=== PATIENT | female | born 1950 | race Caucasian/White ===

== ENCOUNTER 2021-04-24 20:48 | Inpatient (IN) | payer MEDICARE ==
[~2021-04-24] VITALS: Ht 167.6 cm; Wt 101.6 kg
--- NOTE | 2021-04-24 22:50 | NUR ---
PT WAS BIBSELF C/O BLE PAIN WHICH STARTED YESTERDAY. PT WAS DISCHARGED FROM [facility] 2 DAYS AGO. PT IS AAO X4, BREATHING EVEN AND UNLABORED, SATURATION AT 98% ON ROOM AIR, HR IS 86. PATIENT WAS SEEN AND EXAMINED BY DR DELGADO. PT ATTACHED TO MONITOR AND PULSE OX. WILL CONTINUET TO MONITOR AND CARRY OUT MD ORDERS.
[2021-04-24] MEDS ORDERED: IBUPROFEN 400 MG TABLET ONE (23:16)
[2021-04-24] MEDS ORDERED: IBUPROFEN 400 MG TABLET PO ONE (23:30)
--- NOTE | 2021-04-24 23:40 | NUR ---
DR MARSHALL AT BEDSIDE.
[2021-04-25] MEDS ORDERED: LABETALOL 20 MG/4 ML VIAL IV PRN
[2021-04-25] MEDS ORDERED: ACETAMINOPHEN 325 MG TABLET PO PRN
[2021-04-25] MEDS ORDERED: MAG HYDROX/AL HYDROX/SIMETH 30 ML UDC PO PRN
[2021-04-25] MEDS ORDERED: MAGNESIUM HYDROXIDE 30 ML UDC PO PRN
[2021-04-25] MEDS ORDERED: ONDANSETRON HCL/PF 4 MG/2 ML VIAL IVP PRN
[2021-04-25] MEDS ORDERED: hydrALAZINE HCL IV 20 MG VIAL IV PRN
[2021-04-25] MEDS ORDERED: MORPHINE SULFATE INJ 2 MG/ML DISP.SYRIN IV PRN
[2021-04-25] MEDS ORDERED: Z GUARD REMEDY 2 OZ OINT TP PRN
[2021-04-25 00:09] LABS: BASOPHILS # (AUTO) 0.1 K/uL (0.0-0.2); BASOPHILS % (AUTO) 0.4 % (0.0-2.0); CALCIUM, SERUM 8.9 mg/dL (8.5-10.1); CARBON DIOXIDE 31 mmol/L (21-32); CHLORIDE 99 mmol/L (98-107); CREATININE 1.3 mg/dL (0.6-1.3); EOSINOPHILS % (AUTO) 1.7 % (0.0-6.0); GLUCOSE 119 mg/dL (74-106); HEMATOCRIT 44 % (33-45); HEMOGLOBIN 14.7 g/dL (11.5-14.8); LYMPHOCYTES # (AUTO) 0.8 K/uL (0.8-4.8); LYMPHOCYTES % (AUTO) 6.9 % (20.0-44.0); MEAN CORPUSCULAR HGB CONC 33 g/dl (31.0-36.0); MEAN CORPUSCULAR VOLUME 93 fL (82-100); MONOCYTES # (AUTO) 1.4 K/uL (0.1-1.30); MONOCYTES % (AUTO) 12.1 % (2.0-12.0); NEUTROPHILS % (AUTO) 78.9 % (43.0-81.0); PLATELET COUNT (AUTO) 261 K/uL (150-450); RED BLOOD CELL COUNT(AUTO) 4.73 MIL/uL (4.0-5.2); SODIUM SERUM 138 mmol/L (136-145); UREA NITROGEN, BLOOD 35 mg/dL (7-18); WHITE BLOOD COUNT (AUTO) 11.4 K/uL (4.3-11.0)
--- NOTE | 2021-04-25 00:24 | NUR ---
MRSA SWAB AND COVID ANTIGEN COLLECTED AND SENT TO LAB
--- NOTE | 2021-04-25 00:24 | NUR ---
LACTIC ACID 2.4
--- NOTE | 2021-04-25 00:30 | NUR ---
IV LINE ESTABLISHED AT RAC 20G.
[2021-04-25] MEDS: APIXABAN 5 MG TABLET PO SCH ×3 (02:00→17:06)
--- NOTE | 2021-04-25 02:04 | NUR ---
FOLLLOWED UP WITH LAB. COVID SWAB JUST GOT PICKED UP FROM [facility]
[2021-04-25] MEDS ORDERED: SULFAMETH/TRIMETH 800/160 MG 1 UDTAB TABLET ONE (02:09)
[2021-04-25] MEDS ORDERED: CEPHALEXIN MONOHYDRATE 500 MG CAPSULE PO ONE (02:09)
[2021-04-25] MEDS ORDERED: APIXABAN 5 MG TABLET ONE (02:09)
[2021-04-25] MEDS: IV NS 0.9% 1,000 ML IV PRN ×2 (02:19→18:34)
[2021-04-25 03:10] LABS: BILIRUBIN,DIRECT 0.1 mg/dL (0.0-0.2)
--- NOTE | 2021-04-25 03:50 | NUR ---
REPORT GIVEN TO ASHTYN QUICK FOR JONI. PT TRANSFERRED TO ROOM 306 VIA ACLS PROTOCOL.
[2021-04-25 03:55] VITALS: BP 120/65
--- NOTE | 2021-04-25 03:55 | NUR ---
CONTRACT RECRUITER ADMITTING/OPENING NOTES PATIENT WAS BROUGHT UP TO THE UNIT VIA GURNEY AT APPROXIMATELY THIS TIME ACCOMPANIED WITH NURSE ANTONIO AND DARWIN KAPOOR. PATIENT WAS UNABLE TO AMBULATE TO THE BED. PATIENT WAS ORIENTED TO THE STAFF AND ROOM. PATIENT'S ALERT AND ORIENTED X4. PATIENT'S STABLE ON ROOM AIR. PATIENT'S CONNECTED TO A TELE MONITOR SHOWING NO CARDIAC DISTRESS AT THIS TIME. IV ACCESS NOTED IN RAC GAUGE#20, WHICH IS INTACT, PATENT, AND FLUSHING WELL. PATIENT'S IN NO ACUTE DISTRESS AT THIS TIME. SAFETY MEASURES IN PLACE: BED LOCKED, BED ALARM ON, SIDE RAILS UPX3, AND CALL LIGHT WITHIN REACH OF THE PATIENT.
[2021-04-25 06:13] LABS: BASOPHILS # (AUTO) 0.1 K/uL (0.0-0.2); BASOPHILS % (AUTO) 0.5 % (0.0-2.0); EOSINOPHILS % (AUTO) 2.3 % (0.0-6.0); HEMATOCRIT 42 % (33-45); HEMOGLOBIN 14.2 g/dL (11.5-14.8); LYMPHOCYTES # (AUTO) 0.9 K/uL (0.8-4.8); LYMPHOCYTES % (AUTO) 9.4 % (20.0-44.0); MEAN CORPUSCULAR HGB CONC 34 g/dl (31.0-36.0); MEAN CORPUSCULAR VOLUME 93 fL (82-100); MONOCYTES # (AUTO) 1.3 K/uL (0.1-1.30); MONOCYTES % (AUTO) 13.4 % (2.0-12.0); NEUTROPHILS # (AUTO) 7.4 K/uL (1.8-8.9); NEUTROPHILS % (AUTO) 74.4 % (43.0-81.0); PLATELET COUNT (AUTO) 250 K/uL (150-450); RED BLOOD CELL COUNT(AUTO) 4.53 MIL/uL (4.0-5.2)
[2021-04-25 06:20] LABS: BILIRUBIN,TOTAL 0.3 mg/dL (0.2-1.0); CALCIUM, SERUM 9.1 mg/dL (8.5-10.1); CREATININE 1.3 mg/dL (0.6-1.3); MAGNESIUM 2.4 mg/dL (1.8-2.4); PHOSPHORUS 4.3 mg/dL (2.5-4.9); TOTAL PROTEIN, SERUM 7.3 g/dL (6.4-8.2)
[2021-04-25 06:31] LABS: ALBUMIN 2.7 g/dL (3.4-5.0)
--- NOTE | 2021-04-25 07:30 | NUR ---
HEAD INSULATION BOARD SAW OPERATOR CLOSING NOTES PATIENT WAS SEEN SLEEPING IN BE. PATIENT'S ALERT/ORIENTED X 4. PATIENT'S STABLE ON ROOM AIR. PATIENT'S CONNECTED TO A TELE MONITOR SHOWING NO CARDIAC DISTRESS AT THIS TIME. IV ACCESS NOTED IN RAC GAUGE#20, WHICH IS INTACT, PATENT, AND FLUSHING WELL. PATIENT'S IN NO ACUTE DISTRESS AT THIS TIME. PATIENT REFUSED TO HAVE HER OWN MEDICATIONS KEPT SAFE IN THE PHARMACY, ALTHOUGH PATIENT WAS MADE AWARE THAT SHE WILL GET HER OWN MEDICATIONS BACK WHEN SHE GETS DISCHARGED. PATIENT'S OWN MEDICATIONS ARE IN A ZIPLOC BAG IN HER ROOM. PER PATIENT, SHE WILL NOT TAKE HER OWN MEDS DURING THIS HOSPITALIZATION AND AGREED TO ONLY TAKE THE MEDICATIONS ADMINISTERED FROM THIS HOSPITAL. SAFETY MEASURES IN PLACE: BED LOCKED, BED ALARM ON, SIDE RAILS UPX3, AND CALL LIGHT WITHIN REACH OF THE PATIENT. ENDORSED CARE TO THE DAY SHIFT NURSE.
--- NOTE | 2021-04-25 07:46 | NUR ---
NUTRITION SERVICES ASSISTANT OPENING NOTES RECEIVED PATIENT IN BED ALERT/ORIENTED X 4, ABLE TO MAKE NEEDS KNOWN. PATIENT'S STABLE ON ROOM AIR. PATIENT'S CONNECTED TO A TELE MONITOR SHOWING NO CARDIAC DISTRESS AT THIS TIME. IV ACCESS NOTED IN RAC GAUGE#20, WHICH IS INTACT, PATENT, AND FLUSHING WELL. PATIENT'S IN NO ACUTE DISTRESS AT THIS TIME. FOR PT/OT EVALUATION. SAFETY MEASURES IN PLACE: BED LOCKED, BED ALARM ON, SIDE RAILS UPX3, AND CALL LIGHT WITHIN REACH OF THE PATIENT. WE WILL CONTINUE TO MONITOR.
[2021-04-25 08:00] VITALS: BP 115/66
[2021-04-25] MEDS: SULFAMETH/TRIMETH 800/160 MG 1 UDTAB TABLET PO SCH ×3 (09:00→17:04)
[2021-04-25] MEDS: ASPIRIN EC 81 MG TABLET.DR PO SCH (09:01)
[2021-04-25] MEDS: CEPHALEXIN MONOHYDRATE 250 MG CAPSULE PO SCH ×4 (09:01→17:04)
[2021-04-25 12:00] VITALS: BP 122/67
[2021-04-25 16:00] VITALS: BP 117/63
--- NOTE | 2021-04-25 19:26 | NUR ---
PATIENT FINANCIAL REPRESENTATIVE CLOSING NOTES PATIENT'S ALERT/ORIENTED X 4. PATIENT'S STABLE ON ROOM AIR. PATIENT'S CONNECTED TO A TELE MONITOR WITH SR 77 HEART RATE , NO CARDIAC DISTRESS AT THIS TIME. IV ACCESS NOTED IN RAC GAUGE#20, WHICH IS INTACT, PATENT, AND FLUSHING WELL. AMBULATE WITH ASSIST TO THE BATHROOM. SAFETY MEASURES IN PLACE: BED LOCKED, BED ALARM ON, SIDE RAILS UPX3, AND CALL LIGHT WITHIN REACH OF THE PATIENT. ENDORSED CARE TO THE INCOMING SHIFT.
--- NOTE | 2021-04-25 19:50 | NUR ---
DIRECTOR TELEVISION OPENING NOTES RECEIVED PATIENT AWAKE LAYING IN BED. A/O X4. PATIENT WITH REGULAR AND UNLABORED BREATHING ON ROOM AIR, TOLERATED WELL. NO SIGNS AND SYMPTOMS OF DISTRESS NOTED. NO COMPLAIN OF PAIN OR DISCOMFORT AT THIS TIME. PATIENT IS ON EXTERNAL RUBBER CHEMIST SR @ HR 77. IV ACCESS RAC G #20 RUNNING NS @ 75 ML/HR. IV ACCESS PATENT AND INTACT. SAFETY PRECAUTIONS ENFORCED WITH BED LOCKED AND AT LOWEST POSITION. SIDERAILS UP X2. CALL LIGHT WITHIN REACH AT ALL TIMES. WILL CONTINUE TO MONITOR PATIENT.
[2021-04-25 20:00] VITALS: BP 134/66
--- NOTE | 2021-04-25 23:14 | NUR ---
QA MANAGER NOTES PATIENT COMPLAINED OF PAIN. ADMINISTERED TYELNOL 650 MG PO PRN ORDERED BY HOSPITALIST
[2021-04-26 00:09] VITALS: BP 122/62
[2021-04-26 00:19] LABS: BILIRUBIN,URINE NEGATIVE (NEGATIVE); COLOR,URINE YELLOW (YELLOW); LEUKOCYTE ESTERASE ,URINE NEGATIVE (NEGATIVE); NITRITE, URINE NEGATIVE (NEGATIVE); PROTEIN,URINE NEGATIVE (NEGATIVE); UGLUCOSE NEGATIVE (NEGATIVE); UROBILINOGEN,URINE 0.2 EU/dL (0.2)
[2021-04-26 00:58] LABS: CREATININE, URINE 61.3 MG/DL (30.0-125.0); URINE TOTAL PROTEIN 16.6 mg/dL (0-11.9)
[2021-04-26 01:26] LABS: EOSINOPHIL,URINE None Seen
[2021-04-26] MEDS: diphenhydrAMINE HCL 50 MG/ML VIAL IV PRN ×2 (04:43→13:16)
--- NOTE | 2021-04-26 04:43 | NUR ---
PROFESSIONAL GOLF TOURNAMENT PLAYER NOTES DELAYED SCANNED BENDARYL WAS GIVEN AT 0230 FOR ITCHING
[2021-04-26 05:00] VITALS: BP 121/69
--- NOTE | 2021-04-26 07:07 | NUR ---
MINE INSPECTOR FEDERAL NOTES PT REFUSING LINEN CHANGE X3 MULTIPLE TIMES THROUGHOUT SHIFT.RISK AND BENEFITS EXPLAINED X3 WILL ENDORSE CARE
--- NOTE | 2021-04-26 07:09 | NUR ---
SURVEILLANCE DUAL RATE OFFICER CLOSING NOTES PATIENT STILL AWAKE LAYING IN BED. A/O X4. PATIENT WITH REGULAR AND UNLABORED BREATHING ON ROOM AIR, TOLERATED WELL. NO SIGNS AND SYMPTOMS OF DISTRESS NOTED. NO COMPLAIN OF PAIN OR DISCOMFORT AT THIS TIME. PATIENT IS ON EXTERNAL WEB CONTENT MANAGER SR @ HR 66. IV ACCESS RAC G #20 RUNNING NS @ 75 ML/HR. IV ACCESS PATENT AND INTACT. SAFETY PRECAUTIONS ENFORCED WITH BED LOCKED AND AT LOWEST POSITION. SIDERAILS UP X2. CALL LIGHT WITHIN REACH AT ALL TIMES. WILL ENDORSE CONTINUITY OF CARE TO DAY SHIFT NURSE.
--- NOTE | 2021-04-26 07:52 | NUR ---
SOLUTIONS EXECUTIVE SECURITY OPENING NOTES RECEIVED PATIENT AWAKE IN BED, A/O X4. ON ROOM AIR. NO SIGNS AND SYMPTOMS OF DISTRESS NOTED. NO COMPLAIN OF PAIN OR DISCOMFORT AT THIS TIME. PATIENT IS ON EXTERNAL CREATIVE SERVICES WRITER. IV ACCESS RAC G #20 RUNNING NS @ 75 ML/HR. SAFETY PRECAUTIONS IN PLACED WITH BED LOCKED AND AT LOWEST POSITION. SIDERAILS UP X2. CALL LIGHT WITHIN REACH AT ALL TIMES. WILL CONTINUE TO MONITOR.
[2021-04-26 08:11] VITALS: BP 136/77
[2021-04-26] MEDS: CEPHALEXIN MONOHYDRATE 250 MG CAPSULE PO SCH ×3 (08:31→17:24)
[2021-04-26] MEDS: SULFAMETH/TRIMETH 800/160 MG 1 UDTAB TABLET PO SCH ×2 (08:31→17:24)
[2021-04-26] MEDS: ASPIRIN EC 81 MG TABLET.DR PO SCH (08:32)
[2021-04-26] MEDS: APIXABAN 5 MG TABLET PO SCH ×2 (08:33→17:25)
[2021-04-26] MEDS ORDERED: ASPI-1420 PO (09:34)
[2021-04-26] MEDS ORDERED: SULF1TAB48 PO (09:34)
[2021-04-26] MEDS ORDERED: CHOL100062 PO (09:34)
[2021-04-26] MEDS ORDERED: MAGN200T9 PO (09:34)
[2021-04-26 11:49] VITALS: BP 112/62
[2021-04-26 16:00] VITALS: BP 118/76
--- NOTE | 2021-04-26 18:49 | NUR ---
SALES OUTFITTER CLOSING NOTES PATIENT AWAKE LAYING IN BED. A/O X4. PATIENT WITH REGULAR AND UNLABORED BREATHING ON ROOM AIR. NO SIGNS AND SYMPTOMS OF DISTRESS NOTED. NO COMPLAIN OF PAIN OR DISCOMFORT AT THIS TIME. BENADRYL 25MG GIVEN FOR THE GENERALIZED RASHES. PATIENT IS ON EXTERNAL GROUP TEACHER . IV ACCESS ABDIAS G #18 IV ACCESS PATENT AND INTACT. SAFETY PRECAUTIONS ENFORCED WITH BED LOCKED AND AT LOWEST POSITION. SIDERAILS UP X2. CALL LIGHT WITHIN REACH AT ALL TIMES. WILL ENDORSE CONTINUITY OF CARE TO INCOMING SHIFT.
--- NOTE | 2021-04-26 19:15 | NUR ---
SPORTS PHYSIOTHERAPIST OPENING NOTES RECEIVED PATIENT AWAKE LAYING IN BED. A/O X4. PATIENT WITH REGULAR AND UNLABORED BREATHING ON ROOM AIR, TOLERATED WELL. NO SIGNS AND SYMPTOMS OF DISTRESS NOTED. NO COMPLAIN OF PAIN OR DISCOMFORT AT THIS TIME. PATIENT IS ON EXTERNAL FORM BLOCK MAKER SR @ HR 66. IV ACCESS RAC G #20 RUNNING NS @ 75 ML/HR. IV ACCESS PATENT AND INTACT. SAFETY PRECAUTIONS ENFORCED WITH BED LOCKED AND AT LOWEST POSITION. SIDERAILS UP X2. CALL LIGHT WITHIN REACH AT ALL TIMES. WILL CONTINUE TO MONITOR PATIENT.
[2021-04-26 20:00] VITALS: BP 141/77
[2021-04-27] VITALS: BP 125/56
[2021-04-27] MEDS: diphenhydrAMINE HCL 50 MG/ML VIAL IV PRN (02:29)
--- NOTE | 2021-04-27 02:30 | NUR ---
ARSON INVESTIGATOR NOTES PATIENT COMPLAIN OF ITCHING. ADMINISTERED BENDARYL 25MG/O.5ML IV PUSH ORDERED BY HOSPITALIST.
[2021-04-27 04:00] VITALS: BP 120/79
--- NOTE | 2021-04-27 06:46 | NUR ---
COUNTY PROGRAM TECHNICIAN CLOSING NOTES PATIENT STILL AWAKE LAYING IN BED. A/O X4. PATIENT WITH REGULAR AND UNLABORED BREATHING ON ROOM AIR, TOLERATED WELL. NO SIGNS AND SYMPTOMS OF DISTRESS NOTED. NO COMPLAIN OF PAIN OR DISCOMFORT AT THIS TIME. PATIENT IS ON EXTERNAL PAPER FOLDER SR @ HR 67. IV ACCESS RAC G #20 RUNNING NS @ 75 ML/HR. IV ACCESS PATENT AND INTACT. SAFETY PRECAUTIONS ENFORCED WITH BED LOCKED AND AT LOWEST POSITION. SIDERAILS UP X2. CALL LIGHT WITHIN REACH AT ALL TIMES. WILL ENDORSE CONTINUITY OF CARE TO DAY SHIFT NURSE.
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
--- NOTE | 2021-04-27 07:46 | NUR ---
RN OPENING NOTE- RECEIVED PATIENT AWAKE LAYING IN BED. A/O X4. PATIENT WITH REGULAR AND NON-LABORED BREATHING / ON ROOM AIR. NO SIGNS AND SYMPTOMS OF DISTRESS NOTED. NO COMPLAINT OF PAIN OR DISCOMFORT AT THIS TIME. PATIENT IS ON EXTERNAL CHAINSAW MECHANIC SR @ HR 68. IV ACCESS RAC G #20 SKIN RASH TO ENTIRE BODY . PRURITIS PRESENT. POSSIBLE ALLERGIC REACTION TO RX. NOTIFIED MD. SAFETY PRECAUTIONS ENFORCED WITH BED LOCKED AND AT LOWEST POSITION. SIDERAILS UP X2. CALL LIGHT WITHIN REACH AT ALL TIMES. WILL CONTINUE TO MONITOR PATIENT.
[2021-04-27 08:36] VITALS: BP 155/96
[2021-04-27] MEDS: SULFAMETH/TRIMETH 800/160 MG 1 UDTAB TABLET PO SCH (09:00)
[2021-04-27] MEDS: CEPHALEXIN MONOHYDRATE 250 MG CAPSULE PO SCH (09:00)
[2021-04-27] MEDS: APIXABAN 5 MG TABLET PO SCH (09:17)
[2021-04-27] MEDS: ASPIRIN EC 81 MG TABLET.DR PO SCH (09:17)
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
--- NOTE | 2021-04-27 13:00 | NUR ---
POSTAL SORTING OFFICER NOTE- PT DC HOME AT THIS TIME. PT AFTERCARE AND INSTRUCTIONS GIVEN. REVIEWED PRESCRIPTIONS W PT AND UNDERSTOOD. VS STABLE,. BELONGINGS RETURNED TO PT. REFUSES SKIN PHOTOGRAPHS AND CARE. ID WRISTBAND REMOVED. ESCORTED TO CAR IN [place] BY THIS RN.
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
== END 2021-04-27 13:15 | disposition home or self-care (01) | DRG 947 ==
LOC: ER 20:53 → MED 04-25 00:39 → TELE 04-25 03:57 → MED 04-27 11:22
PROVIDERS: ADMIT Internal Medicine; ATTEND Nurse Practitioner Acute Care
DX: R53.1 Weakness (principal); N17.0 Acute kidney failure with tubular necrosis; L03.119 Cellulitis of unspecified part of limb; I48.91 Unspecified atrial fibrillation; I10 Essential (primary) hypertension; B36.9 Superficial mycosis, unspecified; B35.6 Tinea cruris; Z20.822 Contact with and (suspected) exposure to COVID-19; Z85.42 Personal history of malignant neoplasm of other parts of uterus; Z91.19 Patient's noncompliance with other medical treatment and regimen; Z90.710 Acquired absence of both cervix and uterus; Z98.890 Other specified postprocedural states; Z68.36 Body mass index [BMI] 36.0-36.9, adult; I89.0 Lymphedema, not elsewhere classified; E66.01 Morbid (severe) obesity due to excess calories; B35.1 Tinea unguium; B96.20 Unspecified Escherichia coli [E. coli] as the cause of diseases classified elsewhere; I87.2 Venous insufficiency (chronic) (peripheral); I83.90 Asymptomatic varicose veins of unspecified lower extremity; M21.40 Flat foot [pes planus] (acquired), unspecified foot; F41.9 Anxiety disorder, unspecified; Z92.21 Personal history of antineoplastic chemotherapy; Z92.3 Personal history of irradiation
CPT/HCPCS: 36415; 80048-TC; 80053-TC; 82248-TC; 82570-TC; 83605-TC; 83735-TC; 84100-TC; 84155-TC; 84300-TC; 85025-TC; 85730-TC; 87081-TC; 97116-TC; 97530-TC; G0378; J1200; J7030

== ENCOUNTER 2021-05-04 16:36 | Inpatient (IN) | payer MEDICARE ==
[~2021-05-04] VITALS: Ht 168.9 cm; Wt 102.1 kg
[~2021-05-04 16:36] MED LIST: ASPI-1420 PO; CHOL100062 PO; MAGN200T9 PO; SULF1TAB48 PO
--- NOTE | 2021-05-04 16:41 | NUR ---
TO ER BED 14, C/O BILATERAL LEG PAIN,MORE ON THE LEFT X 1 WEEK,RECENTLY ADMITTED AT [place], BREATHING EVEN AND NON LABORED, AWAITING MD ORDERS
--- NOTE | 2021-05-04 17:20 | NUR ---
US TECH AT THE BEDSIDE
--- NOTE | 2021-05-04 17:28 | NUR ---
US AT BEDSIDE
[2021-05-04 17:39] LABS: BASOPHILS # (AUTO) 0.1 K/uL (0.0-0.2); BASOPHILS % (AUTO) 0.6 % (0.0-2.0); EOSINOPHILS % (AUTO) 1.7 % (0.0-6.0); HEMATOCRIT 40 % (33-45); HEMOGLOBIN 13.3 g/dL (11.5-14.8); LYMPHOCYTES # (AUTO) 1.1 K/uL (0.8-4.8); LYMPHOCYTES % (AUTO) 9.9 % (20.0-44.0); MEAN CORPUSCULAR HGB CONC 33 g/dl (31.0-36.0); MEAN CORPUSCULAR VOLUME 94 fL (82-100); MONOCYTES # (AUTO) 1.4 K/uL (0.1-1.30); MONOCYTES % (AUTO) 12.9 % (2.0-12.0); NEUTROPHILS % (AUTO) 74.9 % (43.0-81.0); PLATELET COUNT (AUTO) 270 K/uL (150-450); RED BLOOD CELL COUNT(AUTO) 4.26 MIL/uL (4.0-5.2); WHITE BLOOD COUNT (AUTO) 10.7 K/uL (4.3-11.0)
[2021-05-04 17:50] LABS: CALCIUM, SERUM 8.6 mg/dL (8.5-10.1); CARBON DIOXIDE 31 mmol/L (21-32); CHLORIDE 103 mmol/L (98-107); CREATININE 1.1 mg/dL (0.6-1.3); GLUCOSE 132 mg/dL (74-106); POTASSIUM 4.1 mmol/L (3.5-5.1); SODIUM SERUM 139 mmol/L (136-145); UREA NITROGEN, BLOOD 19 mg/dL (7-18)
[2021-05-04] MEDS ORDERED: VANCOMYCIN 1.5 GM in IV D5W 500 ML IV ONE (18:00)
[2021-05-04 18:09] LABS: ALANINE AMINOTRANSFERASE 25 U/L (12-78); ALBUMIN 2.7 g/dL (3.4-5.0); ALKALINE PHOSPHATASE 70 U/L (46-116); ASPARTATE AMINOTRANSFERASE 15 U/L (15-37); BILIRUBIN,DIRECT 0.1 mg/dL (0.0-0.2); BILIRUBIN,TOTAL 0.4 mg/dL (0.2-1.0); TOTAL PROTEIN, SERUM 7.1 g/dL (6.4-8.2)
[2021-05-04] MEDS ORDERED: HYDROCODONE/APAP 10/325MG TABLET ONE (18:14)
[2021-05-04] MEDS ORDERED: MAGNESIUM HYDROXIDE 30 ML UDC PO PRN (18:30)
[2021-05-04] MEDS ORDERED: Z GUARD REMEDY 2 OZ OINT TP PRN (18:30)
[2021-05-04] MEDS ORDERED: ONDANSETRON HCL/PF 4 MG/2 ML VIAL IVP PRN (18:30)
[2021-05-04] MEDS ORDERED: MAG HYDROX/AL HYDROX/SIMETH 30 ML UDC PO PRN (18:30)
[2021-05-04] MEDS ORDERED: HYDROCODONE/APAP 10/325MG TABLET PO ONE (18:30)
--- NOTE | 2021-05-04 19:15 | NUR ---
STILL UNABLE TO PROVIDE URINE
--- NOTE | 2021-05-04 19:38 | NUR ---
COVID SWAB SENT TO LAB
[2021-05-04] MEDS ORDERED: HYDROCODONE/APAP 5/325MG TABLET ONE (21:38)
--- NOTE | 2021-05-04 21:59 | NUR ---
MRSA SWAB COLLECTED AND SENT TO LAB. PATIENT'S BELONGINGS LIST DONE.
[2021-05-04] MEDS ORDERED: HYDROCODONE/APAP 5/325MG TABLET PO ONE (22:00)
--- NOTE | 2021-05-04 22:00 | NUR ---
BED 328-2
--- NOTE | 2021-05-04 22:15 | NUR ---
CALLED FOR REPORT, NURSE IN PT ROOM
--- NOTE | 2021-05-04 22:18 | NUR ---
REPORT GIVEN TO CHARGE NURSE
[2021-05-04 22:30] VITALS: BP 130/66
--- NOTE | 2021-05-04 22:45 | NUR ---
MS RAIL CAR LOADER NOTE PATIENT RECEIVED FROM ER TO UNIT. PATIENT IS A/OX3. PATIENT APPEARS HIGHLY AGITATED MOST LIKELY D/T ANXIETY ASSOCIATED WITH HOSPITALIZATION. IV RAC #20, NO IVF ORDERED OF YET. PATIENT WAS ASSESSED AND ORIENTED TO THE UNIT. CALL SOLIS GIVEN TO PATIENT. SKIN VERY DIRTY W/ FECES AND URINE MIXED IN. BILAT SKIN TEARS AND BREAKDOWN AT BACK UPPER INNER THIGHS. BILAT HEELS SHOW SKIN DETERIORATION. WOUND CONSULT WILL BE ORDERED. PATIENT WILL BE CLEANED AND CARED FOR PER HYGIENE AND COMFORT MEASURES. NO PAIN NOTED AT THIS TIME. PATIENT'S BELONGING'S INVENTORIED AND ENTERED INTO CHART BY ALYCIA GRANADOS. SAFETY MEASURES FOLLOWED: BED AT LOWEST POSITION, RAILS UPX2, CALL SOLIS WITHIN REACH. WILL CONTINUE TO MONITOR PATIENT.
--- NOTE | 2021-05-04 22:52 | NUR ---
PT WAS TRANSFERRED TO THIRD FLOOR IN STABLE CONDITION
[2021-05-04 23:54] VITALS: BP 130/66
[2021-05-05 06:23] LABS: BASOPHILS # (AUTO) 0.1 K/uL (0.0-0.2); BASOPHILS % (AUTO) 0.7 % (0.0-2.0); EOSINOPHILS % (AUTO) 2.3 % (0.0-6.0); HEMATOCRIT 38 % (33-45); HEMOGLOBIN 12.5 g/dL (11.5-14.8); LYMPHOCYTES # (AUTO) 1.1 K/uL (0.8-4.8); LYMPHOCYTES % (AUTO) 11.5 % (20.0-44.0); MEAN CORPUSCULAR HGB CONC 33 g/dl (31.0-36.0); MEAN CORPUSCULAR VOLUME 94 fL (82-100); MONOCYTES # (AUTO) 1.3 K/uL (0.1-1.30); MONOCYTES % (AUTO) 13.9 % (2.0-12.0); NEUTROPHILS # (AUTO) 6.6 K/uL (1.8-8.9); NEUTROPHILS % (AUTO) 71.6 % (43.0-81.0); PLATELET COUNT (AUTO) 236 K/uL (150-450); RED BLOOD CELL COUNT(AUTO) 4.01 MIL/uL (4.0-5.2); WHITE BLOOD COUNT (AUTO) 9.2 K/uL (4.3-11.0)
[2021-05-05 06:38] LABS: MAGNESIUM 1.7 mg/dL (1.8-2.4); PHOSPHORUS 3.9 mg/dL (2.5-4.9); POTASSIUM 3.9 mmol/L (3.5-5.1)
[2021-05-05 08:00] VITALS: BP 108/45
--- NOTE | 2021-05-05 08:29 | NUR ---
PATIENT REFUSED CXR. STATES SHE IS HERE FOR LEG PAIN AND ALSO REFUSED CXR IN ER PREVIOUS NIGHT. STATES SHE IS A CANCER PATIENT AND DOES NOT WANT ANYMORE RADIATION
--- NOTE | 2021-05-05 09:00 | NUR ---
RN Note Patient received in bed, AO x 3-4. Respiratory even and unlabored on room air, c/o lower legs pain. Pain scale 5 out of 10, and given Tylenol. Skin is warm to touch keep clean/dry. A waiting wound care nurse. call light within reach, will continue to monitor.
[2021-05-05] MEDS: ASPIRIN EC 81 MG TABLET.DR PO SCH (09:05)
[2021-05-05] MEDS: CHOLECALCIFEROL 1,000 UNIT TABLET (VIT D3) PO SCH (09:05)
[2021-05-05] MEDS: ACETAMINOPHEN 325 MG TABLET PO PRN ×3 (09:05→20:03)
[2021-05-05] MEDS: MAGNESIUM OXIDE 400 MG TABLET PO SCH (09:05)
[2021-05-05] MEDS ORDERED: MAGNESIUM OXIDE 400 MG TABLET PO ONE (10:00)
--- NOTE | 2021-05-05 10:30 | NUR ---
Patient denies lower legs pain, except moving or activities.
--- NOTE | 2021-05-05 15:24 | NUR ---
Patient c/o left leg pain, pain scale 5/10 and given Tylenol. Will continue to monitor for condition.
[2021-05-05 16:00] VITALS: BP 125/66
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
--- NOTE | 2021-05-05 17:56 | NUR ---
Pt refused an echocardiogram. Advised ABDELRAHMAN Nettles. Will try again tomorrow.
[2021-05-05] MEDS: VANCOMYCIN 1.25 GM in IV D5W 250 ML IV SCH (18:14)
--- NOTE | 2021-05-05 18:34 | NUR ---
RN Note Patient in bed, remains AO x 4. Respiration even and unlabored on room air. Patient refused echo cardiac. Skin is warm to touch, no s/s of adverse reaction observed from vancomycin for cellulitis. Kept lower position of the bed. Call light within reach, will continue to monitor.
--- NOTE | 2021-05-05 18:52 | NUR ---
Patient stated "cell phone is not working." due to low batteries, but her cell phone working with batteries.
--- NOTE | 2021-05-05 19:00 | NUR ---
MS RN OPENING NOTE RECEIVED PT AWAKE IN BED. A/OX 4. PT IS STABLE ON ROOM AIR. NO SOB NOTED. NO S/S RESPIRATORY DISTRESS. BILATERAL LOWER EXTREMITY CELLULITIS. PT IS BEDREST. PT HAS NO C/O PAIN AT THIS TIME. IV ACCESS IN RIGHT AC G #20. IV IS DISLODGED. SAFETY MEASURES MAINTAINED . BED IN LOWEST LOCKED POSITION, HOB ELEVATED, SIDE RAILS UP X2. CALL LIGHT AND TABLE WITHIN REACH. WILL CONTINUE WITH PLAN OF CARE.
[2021-05-05 20:00] VITALS: BP 141/83
--- NOTE | 2021-05-05 20:03 | NUR ---
PT C/O ACHING PAIN OF 4/10 ON BOTH LEGS, PER PT REQUEST, TYLENOL 650MG PO Q6HR PRN ADMINISTERED AT THIS TIME PER ORDER. WILL CONTINUE TO MONITOR
--- NOTE | 2021-05-05 21:02 | NUR ---
PT COMPLAINED THAT TYLENOL DOES NOT WORK FOR HER PAIN. PT IS FACIAL GRIMACING AND GUARDING. MD HERIBERTO CAAMRGO, MADE AWARE. DOCTOR ORDERED NORCO 10-325MG PO Q6HR PRN. WILL CONTINUE WITH PLAN OF CARE.
[2021-05-05 23:45] VITALS: BP 102/60
[2021-05-06] MEDS ORDERED: BACITRACIN ZINC OINT PACKET 1 EA PACKET TP SCH
[2021-05-06] MEDS ORDERED: BACITRACIN ZINC OINT PACKET 1 EA PACKET TP ONE (00:30)
[2021-05-06] MEDS: HYDROCODONE/APAP 10/325MG TABLET PO PRN ×3 (00:33→23:31)
--- NOTE | 2021-05-06 00:33 | NUR ---
PT C/O ACHING PAIN OF 7/10 ON BOTH LEGS, PER PT REQUEST, NORCO 10-325MG PO Q6HR PRN ADMINISTERED AT THIS TIME PER ORDER. WILL CONTINUE TO MONITOR
--- NOTE | 2021-05-06 01:12 | NUR ---
BACITRACIN NOT AVAILABLE PER NURSING BUSINESS SYSTEM MANAGER ANNE MARIE. WILL CONTINUE WITH PLAN OF CARE.
--- NOTE | 2021-05-06 06:25 | NUR ---
MS RN CLOSING NOTE PT RESTING COMFORTABLY IN BED AT THIS TIME, AWAKE, A/O X4. PT REMAINED STABLE THROUGHOUT SHIFT. ALL NEEDS, MEDICATIONS, AND CARE ADMINISTERED ANTICIPATED PER ORDER; PAIN CONTROL ADMINISTERED PER ORDER. SAFETY PRECAUTIONS IN PLACE AND MAINTAINED AT ALL TIMES. BED IN LOWEST LOCKED POSITION, HOB ELEVATED, SIDE RAILS UP X2. CALL LIGHT AND TABLE WITHIN REACH. WILL ENDORSE TO MORNING SHIFT NURSE FOR JONI.
[2021-05-06 07:12] LABS: CALCIUM, SERUM 8.5 mg/dL (8.5-10.1)
--- NOTE | 2021-05-06 07:30 | NUR ---
RN MS NOTES PT IN BED, AWAKE, ALERT AND ORIENTED, WITH COMPLAINT OF BLE PAIN, BREATHING PATTERN NORMAL, CALL LIGHT WITHIN REACH, NEEDS ATTENDED.
[2021-05-06 08:00] VITALS: BP 118/52
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
[2021-05-06] MEDS: CHOLECALCIFEROL 1,000 UNIT TABLET (VIT D3) PO SCH (09:31)
[2021-05-06] MEDS: MAGNESIUM OXIDE 400 MG TABLET PO SCH (09:32)
[2021-05-06] MEDS: ASPIRIN EC 81 MG TABLET.DR PO SCH (09:32)
[2021-05-06] MEDS: CLOTRIMAZOLE 1% 15 GM TUBE TP SCH ×2 (15:23→18:49)
[2021-05-06 16:00] VITALS: BP 133/74
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
[2021-05-06] MEDS: VANCOMYCIN 1.25 GM in IV D5W 250 ML IV SCH (17:53)
--- NOTE | 2021-05-06 18:55 | NUR ---
RN MS NOTES PT IN BED, AWAKE, ALERT AND ORIENTED, COMPLIANT WITH MEDS AND NURSING INTERVENTIONS, OLD IV SITE LEAKING, NEW IV LINE INSERTED AT LEFT A/C, FLUSING WELL, IV ATB RUNNING, DR. BURGESS AT BEDSIDE, DUE MEDS GIVEN ORDERED, SKIN TREATMENT DONE ORDERED, ASSISTED WITH NEEDS, ALL NEEDS ATTENDED.
--- NOTE | 2021-05-06 19:30 | NUR ---
MS RN OPENING NOTE RECEIVED PT RESTING COMFORTABLY IN BED AT THIS TIME, AWAKE, A/O X4. PT STABLE ON ROOM AIR. NO SOB OR S/S OR RESPIRATORY DISTRESS. IV ACCESS L AC 20 GAUGE, INTACT AND PATENT. LE WOUND DRESSING C/D/I. SAFETY PRECAUTIONS IN PLACE. BED IN LOWEST LOCKED POSITION, HOB ELEVATED, SIDE RAILS UP X2, AND CALL LIGHT AND TABLE WITHIN REACH. WILL CONTINUE TO MONITOR.
[2021-05-06 20:00] VITALS: BP 145/88
--- NOTE | 2021-05-06 23:30 | NUR ---
RN NOTES PATIENT COMPLAINED OF LEG PAIN- PATIENT HAS NORCO 1MG PO ORDERED BUT ONLY TOOK HALF OF IT. V/S STABLE
--- NOTE | 2021-05-07 06:27 | NUR ---
MS RN CLOSING NOTE PT RESTING COMFORTABLY IN BED AT THIS TIME, AWAKE, A/O X4. PT STABLE ON ROOM AIR. NO SOB OR S/S OR RESPIRATORY DISTRESS. IV ACCESS L AC 20 GAUGE, INTACT AND PATENT. LE WOUND DRESSING C/D/I. ALL NEEDS MET AT THIS TIME. SAFETY PRECAUTIONS MAINTAINED AT ALL TIMES. BED IN LOWEST LOCKED POSITION, HOB ELEVATED, SIDE RAILS UP X2, AND CALL LIGHT AND TABLE WITHIN REACH. WILL ENDORSE TO ONCOMING NURSE FOR JONI.
--- NOTE | 2021-05-07 07:30 | NUR ---
MS RN OPENING NOTE PT IS ASLEEP IN BED, EASY TO AROUSE. ALERT AND ORIENTED X 4. PT ON ROOM AIR, TOLERATING WELL. NO S/SX OF DISTRESS, NO SOB. BREATHING IS EVEN AND UNLABORED. LE DRESSING DRY AND INTACT. IV ACCESS LAC#20 PATENT AND INTACT . SAFETY MEASURES IN PLACE WITH BED LOCKED AT LOW POSITION, SIDE RAILS UP X 2. WILL CONTINUE TO MONITOR PATIENT THROUGHOUT SHIFT.
[2021-05-07 08:00] VITALS: BP 108/69
[2021-05-07] MEDS: CHOLECALCIFEROL 1,000 UNIT TABLET (VIT D3) PO SCH (08:30)
[2021-05-07] MEDS: MAGNESIUM OXIDE 400 MG TABLET PO SCH (08:31)
[2021-05-07] MEDS: ASPIRIN EC 81 MG TABLET.DR PO SCH (08:31)
[2021-05-07] MEDS: CLOTRIMAZOLE 1% 15 GM TUBE TP SCH ×2 (08:34→16:03)
[2021-05-07] MEDS ORDERED: SULF1TAB48 PO (09:20)
--- NOTE | 2021-05-07 15:49 | NUR ---
MS RN NOTE PT DECLINED AMBULANCE TRANSPORTATION SERVICE AND WILL DRIVE OWN CAR TO [facility]. PT SIGNED WAIVER FORM;ORIGINAL PLACED IN CHART. GAVE REPORT TO ABDELRAHMAN NIÑO AT [facility].
--- NOTE | 2021-05-07 17:35 | NUR ---
MS HOURLY CAREGIVER NOTES DISCHARGE SUMMARY REVIEWED AND SIGNED BY PATIENT. ALL QUESTIONS ANSWERED, PT VERBALIZED UNDERSTANDING. PT SIGNED WAIVER FORM TO DRIVE HERSELF TO [facility] WITH HER OWN CAR. IV ACCESS AND ID BAND REMOVED. PT DECLINED PHOTOS OF SKIN AND WOUNDS PRIOR TO DISCHARGE. ALL BELONGINGS RETURNED AND LIST SIGNED. ACCOMPANIED PATIENT TO CAR VIA WHEELCHAIR.
== END 2021-05-07 17:15 | DRG 602 ==
LOC: ER 16:40 → MED 22:01
PROVIDERS: ADMIT Internal Medicine; ATTEND Internal Medicine
DX: L03.115 Cellulitis of right lower limb (principal); E43 Unspecified severe protein-calorie malnutrition; D68.59 Other primary thrombophilia; L97.429 Non-pressure chronic ulcer of left heel and midfoot with unspecified severity; L03.116 Cellulitis of left lower limb; I10 Essential (primary) hypertension; Z20.822 Contact with and (suspected) exposure to COVID-19; Z90.710 Acquired absence of both cervix and uterus; Z85.42 Personal history of malignant neoplasm of other parts of uterus; Z92.21 Personal history of antineoplastic chemotherapy; Z88.8 Allergy status to other drugs, medicaments and biological substances; Z79.82 Long term (current) use of aspirin; Z79.899 Other long term (current) drug therapy; I87.8 Other specified disorders of veins; I89.0 Lymphedema, not elsewhere classified; E66.9 Obesity, unspecified; F41.9 Anxiety disorder, unspecified; Z92.3 Personal history of irradiation; Z74.09 Other reduced mobility; I48.0 Paroxysmal atrial fibrillation; Z79.01 Long term (current) use of anticoagulants; E83.42 Hypomagnesemia; G62.9 Polyneuropathy, unspecified; G89.29 Other chronic pain; S90.822A Blister (nonthermal), left foot, initial encounter; X58.XXXA Exposure to other specified factors, initial encounter; Y92.9 Unspecified place or not applicable; R23.9 Unspecified skin changes
CPT/HCPCS: 36415; 73620-TC; 80048-TC; 80076-TC; 83605-TC; 83735-TC; 83880; 84100-TC; 84484-TC; 85025-TC; 87040-TC; 87070-TC; 87081-TC; 93970-TC; 97112-TC; 97530-TC; A6253; A6403; C9803; G0378; J3370; J7050; J7060

== ENCOUNTER 2021-07-27 08:39 | Inpatient (IN) | payer MEDICARE ==
[~2021-07-27] VITALS: Ht 167.6 cm; Wt 108.0 kg
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
--- NOTE | 2021-07-27 08:55 | NUR ---
Valentin jernigan in [facility] - 07/27/21 at 0913 by DALTON SEEN AND EXAMINED BY DR YOUNGBLOOD
--- NOTE | 2021-07-27 09:10 | NUR ---
SALINE LOCK ESTABLISHED, BLOOD DRAWN AND SENT TO LAB
--- NOTE | 2021-07-27 09:14 | NUR ---
COVID ANTIGEN SWAB DONE AND SENT TO LAB
[2021-07-27 09:24] LABS: BASOPHILS # (AUTO) 0.1 K/uL (0.0-0.2); EOSINOPHILS % (AUTO) 1.7 % (0.0-6.0); HEMATOCRIT 40 % (33-45); LYMPHOCYTES % (AUTO) 11.6 % (20.0-44.0); MEAN CORPUSCULAR HGB CONC 33 g/dl (31.0-36.0); MEAN CORPUSCULAR VOLUME 92 fL (82-100); MONOCYTES # (AUTO) 1.1 K/uL (0.1-1.30); MONOCYTES % (AUTO) 11.9 % (2.0-12.0); NEUTROPHILS # (AUTO) 6.5 K/uL (1.8-8.9); NEUTROPHILS % (AUTO) 73.8 % (43.0-81.0); PLATELET COUNT (AUTO) 221 K/uL (150-450); RED BLOOD CELL COUNT(AUTO) 4.33 MIL/uL (4.0-5.2); WHITE BLOOD COUNT (AUTO) 8.8 K/uL (4.3-11.0)
[2021-07-27] MEDS ORDERED: LACT1CAP71 PO (09:24)
[2021-07-27] MEDS ORDERED: FURO-144 PO (09:24)
[2021-07-27] MEDS ORDERED: ASCO-340 PO (09:24)
[2021-07-27] MEDS ORDERED: SENN-261 PO (09:24)
--- NOTE | 2021-07-27 09:30 | NUR ---
ROOM 109
[2021-07-27 10:04] LABS: CALCIUM, SERUM 9.3 mg/dL (8.5-10.1); CARBON DIOXIDE 28 mmol/L (21-32); CHLORIDE 103 mmol/L (98-107); CREATININE 1.1 mg/dL (0.6-1.3); SODIUM SERUM 139 mmol/L (136-145); UREA NITROGEN, BLOOD 27 mg/dL (7-18)
--- NOTE | 2021-07-27 10:13 | NUR ---
STILL UNABLE TO PROVIDE URINE AT THIS TIME
[2021-07-27 10:14] LABS: ALANINE AMINOTRANSFERASE 27 U/L (12-78); ALBUMIN 3.3 g/dL (3.4-5.0); ALKALINE PHOSPHATASE 100 U/L (46-116); ASPARTATE AMINOTRANSFERASE 18 U/L (15-37); BILIRUBIN,DIRECT 0.1 mg/dL (0.0-0.2); BILIRUBIN,TOTAL 0.3 mg/dL (0.2-1.0); TOTAL PROTEIN, SERUM 7.8 g/dL (6.4-8.2)
[2021-07-27 10:29] LABS: ALCOHOL, BLOOD < 3 mg/dL (0-0)
[2021-07-27 10:45] LABS: GLUCOSE 107 mg/dL (74-106)
--- NOTE | 2021-07-27 11:30 | NUR ---
MS COMPONENT ASSEMBLER SUPERVISOR NOTE RECEIVED PATIENT FROM ED VIA SCOTTY. REPORT RECEIVED FROM SHANTELL, ED NURSE. PT A/O X 3-4. NO S/SX OF ACUTE DISTRESS. NO SOB. BREATHING IS EVEN AND UNLABORED. PT C/O 10/30 PAIN IN BLE AND FEET. IV ACCESS RAC#20 PATENT AND INTACT. ORIENTED PATIENT TO UNIT, STAFF AND CALL LIGHT. SAFETY MEASURES IN PLACE WITH BED LOCKED AT LOW POSITION WITH SIDE RAILS X 2. CALL LIGHT IS WITHIN REACH. WILL CONTINUE TO MONITOR PATIENT THROUGHOUT SHIFT. Addendum: 07/27/21 at 1526 by SEBAS MANRIQUEZ RN ERROR TIME
--- NOTE | 2021-07-27 11:35 | NUR ---
URINE COLLECTED AND SENT TO LAB
--- NOTE | 2021-07-27 11:38 | NUR ---
GOING TO 308.1
--- NOTE | 2021-07-27 11:41 | NUR ---
ATTEMPTED TO GIVE REPORT, NO NURSE ASSIGNED YET, WILL CALL AGAIN
--- NOTE | 2021-07-27 11:47 | NUR ---
REPORT GIVEN TO NURSE MULLEN FOR JONI
[2021-07-27 11:57] LABS: BILIRUBIN,URINE NEGATIVE (NEGATIVE); COLOR,URINE YELLOW (YELLOW); LEUKOCYTE ESTERASE ,URINE NEGATIVE (NEGATIVE); NITRITE, URINE NEGATIVE (NEGATIVE); PH,URINE 5.5 (5.0-8.0); PROTEIN,URINE NEGATIVE (NEGATIVE); UGLUCOSE NEGATIVE (NEGATIVE); UROBILINOGEN,URINE 0.2 EU/dL (0.2)
--- NOTE | 2021-07-27 12:03 | NUR ---
TRANSFERRED TO ROOM 308 IN STABLE CONDITION
[2021-07-27 12:29] LABS: BACTERIA,URINE Few /HPF (None Seen); RBC,URINE 0-2 /HPF (0-2); SQUAMOUS EPITHELIAL CELL,UR Few /HPF (None Seen); URIC ACID CRYSTALS,URINE Moderate /HPF (None Seen); WBC,URINE 0-2 /HPF (0-3)
[2021-07-27] MEDS ORDERED: ZOLPIDEM TARTRATE 5 MG TABLET PO PRN (12:30)
[2021-07-27] MEDS ORDERED: MAGNESIUM HYDROXIDE 30 ML UDC PO PRN (12:30)
[2021-07-27] MEDS ORDERED: CEFTRIAXONE 1 G in IV D5W 50 ML IV SCH (12:30)
[2021-07-27] MEDS ORDERED: ONDANSETRON HCL/PF 4 MG/2 ML VIAL IVP PRN (12:30)
[2021-07-27] MEDS ORDERED: MAG HYDROX/AL HYDROX/SIMETH 30 ML UDC PO PRN (12:30)
[2021-07-27] MEDS ORDERED: Z GUARD REMEDY 4 OZ OINT TP PRN (12:30)
--- NOTE | 2021-07-27 12:30 | NUR ---
MS RAILROAD POLICE OFFICER NOTE RECEIVED PATIENT FROM ED VIA GURNEY. REPORT RECEIVED FROM SHANTELL, ED NURSE. PT A/O X 3-4. NO S/SX OF ACUTE DISTRESS. NO SOB. BREATHING IS EVEN AND UNLABORED. PT C/O /10 PAIN IN BLE AND FEET. IV ACCESS RAC#20 PATENT AND INTACT. ORIENTED PATIENT TO UNIT, STAFF AND CALL LIGHT. SAFETY MEASURES IN PLACE WITH BED LOCKED AT LOW POSITION WITH SIDE RAILS X 2. CALL LIGHT IS WITHIN REACH. WILL CONTINUE TO MONITOR PATIENT THROUGHOUT SHIFT.
[2021-07-27] MEDS: ENOXAPARIN SODIUM 40 MG/0.4 ML DISP.SYRIN SQ SCH (12:54)
[2021-07-27] MEDS: FUROSEMIDE 40 MG/4 ML VIAL IV SCH ×2 (12:54→16:01)
[2021-07-27] MEDS: CEFTRIAXONE 2 G in IV D5W 100 ML IV SCH (13:05)
[2021-07-27] MEDS: HYDROCODONE/APAP 5/325MG TABLET PO PRN ×2 (14:50→21:07)
[2021-07-27] MEDS: VANCOMYCIN 1 GM in IV D5W 250 ML IV SCH (14:50)
--- NOTE | 2021-07-27 15:22 | NUR ---
SS Consult: SS consult for lives alone and had a fall. Pt. Is a 71-year-old female who demonstrates adequate insight to the reason for hospitalization. Per pt., she was brought to hospital by self-due to having foot and ankle pain due to a fall. Pt. was oriented x3, alert, and cooperative. During interview, pt. was capable of following directions, made appropriate eye-contact, and appeared well-groomed. Pt.s speech was at a normal rate and pt.s mood was elevated. SW explored pt.s Hx of mental health and substance abuse. Pt. reported no Hx of mental health, substance abuse, SI/HI, denied AH/VH, paranoia or delusions. SW explored pt.s living situation. Per pt., she lives alone [[id number] [facility]. [address] [place] [address]]. Per pt., her home currently has moles. Pt. stated that she was staying at a residential for two weeks but got discharged. Pt. mentioned that she does not like nursing homes. Pt. has no family or a caregiver. SW will be making an APS report due to self-neglect. SYDNEE explored pt.s financial status. Per pt., she does not receive SSI or SSDI. SW explored pt.s fall. Pt. stated that she walking to the bathroom and tripped over a wire, which caused her hands and feet to bruise. Plan: SYDNEE provided available resources and pt. accepted. SW made an APS report due to self-neglect. APS Intake #[id number] Resources Provided: ABUSE PREVENTION: ELDER ABUSE HOTLINE (13/12) ADULT PROTECTIVE SERVICES HOTLINE LONG-TERM CARE [facility] Region AREA ON AGING (HOTLINE) ADULT DAY HEALTH CARE CARE CENTERS: Private pay or Medi-ok funded adult day care [place] Adult Day Health Care [facility] , [facility] , [facility] , [facility] Adult Day Health Care , [facility] , [facility] , [facility] , [place] [facility] , [place] ALZHEIMERS DISEASE/DEMENTIA: Alzheimers Association Helpline [facility] Chapter www.alz.org/[facility] Department of Aging www.lacity.org Family Caregiver [place] www.caregiver.org [place] Caregiver Resources Center/Family Support www.[facility] hospital[facility] rehabilitation [facility].org CANCER RESOURCES: [place] Cancer Society www.cancer.org Cancer Support Community www.CancerSupportVvsb.org: CancerCare www.cancercare.org [facility] Cancer Support Center www.[facility].org [facility] HEALTH ASSOCIATIONS: AARP www.aarp.org ALS Association (ask for Isadora) www.als.org [place] Diabetes Association www.diabetes.org Singaporean Heart Association www.heart.org Singaporean Lung Association www.lungusa.org Singaporean Parkinson Disease Association www.apdaparkinson.org Singaporean [place] , www.redcross.org Arthritis Foundation www.arthritis.org Crohns & Colitis Foundation of Singaporean www.ccfa.org/chapters/rahel National Multiple Sclerosis Society www.nationalmssociety.org Myasthenia Gravis Foundation www.myasthenia-ca.org National Stroke Association www.stroke.org CONSERVATORSHIP & GUARDIANSHIP: AARP Gypsy Arce Legal Services Center for Health Care Rights Eldercare Information and Referral Scrub Tech Foundation [facility]: [facility] Bar Referral Service [facility] Legal Services Office of the Public Guardian [place] EYESIGHT DISORDER RESOURCES: [place] Macular Degeneration Foundation [facility] www.[facility].org GRIEF AND BEREAVEMENT RESOURCES: The [facility] , [facility], [place] THE [facility] , [facility] Bereavement Center , [place] HEARING DISORDER RESOURCES: [place] Telephone Access Program Deaf and Disabled Telecommunications Program www.ddtp.[facility].ca.gov HearRx Hearing Centers ([place]) Better Hearing Systems , [place] GLAD ([facility] Agency on Deafness) V/ TTY; Court Worker , [facility] Hearing [facility] -low income hearing aid assistance www.main campus medical centerringfoundation.org [place] [facility] , [place] HELP AT HOME CAREGIVER SUPPORT: In Home Support Services (Must have Medi-Ok to be eligible) *Ask for a list of agencies that provide services to assist with care in the home. Local Senior Centers also have listings of care providers. HOME SAFETY MODIFICATIONS AND EQUIPMENT: Senior centers have additional referrals. [place] Linux Voice and Community Investment Dept. Handyworker Program (low income) or Visit http://hcidla.[facility].org/que-vtsqph-tu for more information National Seating and Mobility and/or ; Forever Active www.foreveractivemed.InboundWriter Stay Home Safe www.Stayhomesafe.InboundWriter LIFE ALERT RESPONSE SYSTEM: Supercool School Services [phone] www. Cloudability Life Alert 150-751-6655 www.Whittl Life Station 383-196-4347 www.BuzzDoesation.InboundWriter Safe Return 327-239-3162 www.alz.or/safereturn Cell Phones for Seniors www.Umeng MEALS AND FOOD PROGRAMS: [place] Meals on Wheels [phone] [place] Meals on Wheels [phone] [facility] [phone] [place] to the Homebound [phone] [place] to the Homebound [phone] [facility] to the Homebound [phone] [facility] to the Homebound [phone] [facility] [phone] [facility] [phone] ONE Generation [phone] [facility] [phone] [facility] [phone] Meals on Wheels [phone] For all ages: $6.85/ meal w side. Delivered M-F from 10 am-1pm. Application and payment is done over the phone. Frozen meals available for weekends. Emergency Food Coalition [phone] [facility] Nursery School Teacher [phone] [facility] [phone] [facility] Brown bag lunches [phone] [facility] [phone] MEAL/GROCERY DELIVERY PROGRAMS: [facility] Senior Gourmet Meals [phone]- [facility] [phone]- [facility] Magic Kitchen [phone] Moms Meals [phone] (ask Cardoso for Discount Select grocery stores may provide delivery. MEDICAL INSURANCE SUPPORT SERVICES: Center for Health Care Rights [phone] Health Insurance Counseling/Advocacy Programs (HICAP)-Must have Medicare. Offers counseling for Medi-Ok eligibility [phone] Department of Public Nursery School Teacher [phone].[facility].ca.gov Medicare [phone] www.socialsecurity.org Social Security [phone] SENIOR ACTIVITY PROGRAMS: *Contact a local senior center, adult school, recreation facility or community [facility] for education, fitness, recreation, and social programs. Aquatic Therapy and Adapted Exercise programs through [facility] [phone] Encore at [facility] [phone] www.[facility]/encore U- Senior Friends 933-064-1920 [place] Senior Programs [phone] www.oasisnet.org Suddenly 65 www.akwcpmco04.com SENIOR CENTERS: [facility] [phone] [facility] [place] [phone] [facility] [phone] [facility] [phone] [facility] [phone] [facility] [phone] [facility] [phone] [facility] [phone] One Generation, [facility] [phone] [facility] [phone] [facility] [phone] [facility] [phone] [facility] [phone] TRANSPORTATION: Local [facility] Centers may have applications for transportation programs and additional resources. ACCESS Services [phone] Transportation for seniors and disabled persons 7 days a week requiring 254 hr. advance reservation. Must apply and register for program barbie eligible. CITY RIDE [phone] or [phone] Transportation for seniors and persons with ADA card/metro disabled card in the [facility]. M-F only. Must register for services. ONE GENERATION [phone] Serves 65 years + in conjunction with [employer] ride program. Must be registered with both programs. A to B Transport [phone] Provides wheelchair/gurney van service. Adult Medical Transport [phone] Accepts [facility] with prior authorization. Care Van [phone] Provides wheelchair Transport. City Wide Transportation [phone] Provides gurney service Gentle Care [phone] Gurney Transport. All Town Transportation [phone] wheelchair & gurney transport [facility] Transportation [phone] wheelchair & gurney transport [place] Non-Emergency Transport [phone] wheelchair & gurney transport [facility] Center [phone] Short Term Transportation primarily for adults with disabilities on social security income. Nominal fee may apply and a reservation is required. City Cab [phone] or [phone] [facility] [phone] [place] [address] Referral Services -[phone] For additional programs & services VETERANS RESOURCES: Submissions for Aid and Attendance should be done directly to Federal VA office locatd at : [address] [phone] National Caregiver Support Line [phone] Ok zachary Veterans Services Field Office [phone] [place] Department of Affairs [phone] Pension Information [phone]
[2021-07-27 16:18] VITALS: BP 103/72
--- NOTE | 2021-07-27 18:52 | NUR ---
MS RN CLOSING NOTE PT REMAINS IN BED AWAKE. A/O X 3-4. ALL NEEDS MET THROUGHOUT SHIFT. VERY NEEDY AND DEMANDING. NO S/SX OF ACUTE DISTRESS. NO SOB. BREATHING IS EVEN AND UNLABORED. IV ACCESS RAC#20 PATENT AND INTACT-SL. SAFETY MEASURES IN PLACE WITH BED LOCKED AT LOW POSITION WITH SIDE RAILS X 2. CALL LIGHT IS WITHIN REACH. WILL ENDORSE CONTINUITY OF CARE TO ONCOMING SHIFT.
[2021-07-27] MEDS ORDERED: BACITRACIN/POLYMYXIN B 15 GM TUBE TP PRN (19:00)
--- NOTE | 2021-07-27 19:10 | NUR ---
RN opening notes Pt is sitting in bed comfortably watching TV. Pt is alert and orientedX4. On room air. No SOB. No S/S of distress noted. IV site RAC# 20 is clean, intact and flushes well. Safety precautions is maintained. Bed at low position, brakes locked, hob elevated, siderailsupX3, bed alarm is on and call light is within reach. Will continue to monitor.
[2021-07-27 20:00] VITALS: BP 101/58
--- NOTE | 2021-07-27 21:10 | NUR ---
RN notes Pt is complaining of pain on BLE ext and requesting pain meds. administered norco5/1 tab/prn as ordered for pain. safety precautions is maintained. Will continue to monitor.
[2021-07-28] MEDS: VANCOMYCIN 1 GM in IV D5W 250 ML IV SCH ×2 (02:16→16:05)
[2021-07-28 06:24] LABS: BASOPHILS % (AUTO) 0.5 % (0.0-2.0); HEMATOCRIT 36 % (33-45); HEMOGLOBIN 11.8 g/dL (11.5-14.8); LYMPHOCYTES # (AUTO) 0.9 K/uL (0.8-4.8); LYMPHOCYTES % (AUTO) 11.8 % (20.0-44.0); MEAN CORPUSCULAR HGB CONC 33 g/dl (31.0-36.0); MEAN CORPUSCULAR VOLUME 92 fL (82-100); MONOCYTES % (AUTO) 13.4 % (2.0-12.0); NEUTROPHILS # (AUTO) 5.6 K/uL (1.8-8.9); NEUTROPHILS % (AUTO) 71.3 % (43.0-81.0); PLATELET COUNT (AUTO) 185 K/uL (150-450); RED BLOOD CELL COUNT(AUTO) 3.87 MIL/uL (4.0-5.2); WHITE BLOOD COUNT (AUTO) 7.8 K/uL (4.3-11.0)
--- NOTE | 2021-07-28 06:30 | NUR ---
RN closing notes Pt is resting in bed comfortably. Pt is alert and orientedX4. On room air. No SOB. No S/S of distress noted. VS is stable. IV site RAC# 20 is clean, intact and flushes well. Kept Pt clean, dry and comfortable. Wound care provided. Safety precautions is maintained. Bed at low position, brakes locked, hob elevated, siderailsupX3, bed alarm is on and call light is within reach. Will endorse to am nurse for JONI.
[2021-07-28 07:20] LABS: CALCIUM, SERUM 8.6 mg/dL (8.5-10.1); CREATININE 0.9 mg/dL (0.6-1.3); MAGNESIUM 1.6 mg/dL (1.8-2.4); PHOSPHORUS 3.5 mg/dL (2.5-4.9); POTASSIUM 3.9 mmol/L (3.5-5.1)
[2021-07-28 08:00] VITALS: BP 118/58
[2021-07-28] MEDS: HYDROCODONE/APAP 5/325MG TABLET PO PRN ×2 (08:26→20:40)
[2021-07-28 08:32] LABS: THYROID STIMULATING HORMONE 2.355 uIU/mL (0.358-3.74)
--- NOTE | 2021-07-28 08:56 | NUR ---
WOUND CARE CONSULT: PT PRESENTS WITH INCONTINENCE ASSOCIATED SKIN DAMAGE WITH RASH TO INNER BUTTOCKS AND PERINEUM WELL DISCOLORATION AND SKIN ISSUES WITH LOWER LEGS AND FEET, ALL PRESENT ON ADMISSION. DR DONAHUE CALLED FOR DPM CONSULT. RECOMMENDATIONS MADE FOR SKIN PROTECTION. DISCUSSED WITH NURSING STAFF. MD IN AGREEMENT WITH PLAN OF CARE.
[2021-07-28] MEDS: ASPIRIN EC 81 MG TABLET.DR PO SCH (11:31)
[2021-07-28] MEDS: SENNOSIDES 8.6 MG TABLET PO SCH (11:31)
[2021-07-28] MEDS: CHOLECALCIFEROL 1,000 UNIT TABLET (VIT D3) PO SCH (11:31)
[2021-07-28] MEDS: PANTOPRAZOLE 40 MG TABLET.DR PO SCH (11:31)
[2021-07-28] MEDS: FUROSEMIDE 40 MG/4 ML VIAL IV SCH ×2 (11:32→17:24)
[2021-07-28] MEDS: ASCORBIC ACID 500 MG TABLET PO SCH (11:32)
[2021-07-28] MEDS ORDERED: MAGNESIUM OXIDE 400 MG TABLET PO ONE ×2 (12:00→14:30)
--- NOTE | 2021-07-28 13:42 | NUR ---
SS Note: SS Consult requested for Insurance issues. SW referred this patient to Healthcare Financial Services department EXT#[id number]. HCFS will follow up and assist the pt. to resolves insurance issues.
[2021-07-28] MEDS: CEFTRIAXONE 2 G in IV D5W 100 ML IV SCH (14:28)
[2021-07-28] MEDS: ENOXAPARIN SODIUM 40 MG/0.4 ML DISP.SYRIN SQ SCH (14:29)
[2021-07-28 16:00] VITALS: BP 127/65
[2021-07-28] MEDS: CLOTRIMAZOLE 1% 15 GM TUBE TP SCH (17:19)
--- NOTE | 2021-07-28 18:00 | NUR ---
MG. REPLACEMENT GIVEN,PURE WICK APPLIED.URINE OUTPUT GOOD,PT.WELDER/INSTALLER LIGHT FREQ.VASCULAR STUDIES DONE,RESULTS PENDING.
[2021-07-28] MEDS: MUPIROCIN OINT 2% 22 GM TUBE TP SCH (18:29)
--- NOTE | 2021-07-28 19:15 | NUR ---
RN opening notes Pt is sitting in bed comfortably watching TV. Pt is alert and orientedX4. On room air. No SOB. No S/S of distress noted. IV site RAC# 20 is clean, intact and flushes well. Purewick is intact and draining clear yellow urine. Safety precautions is maintained. Bed at low position, brakes locked, hob elevated, siderailsupX3, bed alarm is on and call light is within reach. Will continue to monitor.
[2021-07-28 20:00] VITALS: BP 126/61
--- NOTE | 2021-07-29 00:35 | NUR ---
RN notes Report given to ABDELRAHMAN Dalton for JONI.
[2021-07-29] MEDS: VANCOMYCIN 1 GM in IV D5W 250 ML IV SCH (01:33)
[2021-07-29] MEDS: ACETAMINOPHEN 325 MG TABLET PO PRN ×3 (04:04→21:26)
[2021-07-29 06:45] LABS: BASOPHILS # (AUTO) 0.1 K/uL (0.0-0.2); BASOPHILS % (AUTO) 0.7 % (0.0-2.0); EOSINOPHILS % (AUTO) 1.7 % (0.0-6.0); HEMATOCRIT 37 % (33-45); HEMOGLOBIN 12.1 g/dL (11.5-14.8); LYMPHOCYTES # (AUTO) 0.7 K/uL (0.8-4.8); LYMPHOCYTES % (AUTO) 8.4 % (20.0-44.0); MEAN CORPUSCULAR HGB CONC 33 g/dl (31.0-36.0); MEAN CORPUSCULAR VOLUME 93 fL (82-100); MONOCYTES # (AUTO) 1.2 K/uL (0.1-1.30); MONOCYTES % (AUTO) 13.5 % (2.0-12.0); NEUTROPHILS # (AUTO) 6.7 K/uL (1.8-8.9); NEUTROPHILS % (AUTO) 75.7 % (43.0-81.0); PLATELET COUNT (AUTO) 180 K/uL (150-450); RED BLOOD CELL COUNT(AUTO) 3.94 MIL/uL (4.0-5.2); WHITE BLOOD COUNT (AUTO) 8.8 K/uL (4.3-11.0)
--- NOTE | 2021-07-29 06:47 | NUR ---
MS RN CLOSING NOTE PT IN BED AWAKE. A/O X4. PT STABLE ON ROOM AIR. NO SOB OR S/S OF RESPIRATORY DISTRESS. IV ACCESS RAC 20 GAUGE SL, INTACT AND PATENT. ALL NEEDS MET AT THIS TIME. SAFETY PRECAUTIONS IN PLACE AT ALL TIMES. BED IN LOWEST LOCKED POSITION, HOB ELEVATED, SIDE RAILS UP X2, AND CALL LIGHT AND TABLE WITHIN REACH. WILL ENDORSE TO ONCOMING NURSE FOR JONI.
[2021-07-29 07:26] LABS: CALCIUM, SERUM 8.6 mg/dL (8.5-10.1); MAGNESIUM 1.8 mg/dL (1.8-2.4); POTASSIUM 3.7 mmol/L (3.5-5.1)
[2021-07-29 08:00] VITALS: BP_SYST 120; BP_SYST 168; BP_DIAS 112; BP_DIAS 67
--- NOTE | 2021-07-29 08:01 | NUR ---
MS RN OPENING NOTE Patient in bed, awake. A/O x 4, able to make needs known. On room air, breathing evenly and unlabored. No SOB or s/s of distress noted. IV access on RAC #20G, intact and patent. Purewick system in place draining to a yellow colored urine. Dressing on Left leg is c/d/i. Safety precautions in place: bed in low, locked position; siderails up x 2; call light within reach. Will continue to monitor.
[2021-07-29] MEDS: CLOTRIMAZOLE 1% 15 GM TUBE TP SCH ×2 (09:00→17:49)
[2021-07-29] MEDS: MUPIROCIN OINT 2% 22 GM TUBE TP SCH (09:00)
[2021-07-29] MEDS: ASCORBIC ACID 500 MG TABLET PO SCH (09:07)
[2021-07-29] MEDS: FUROSEMIDE 40 MG/4 ML VIAL IV SCH ×2 (09:07→17:44)
[2021-07-29] MEDS: SENNOSIDES 8.6 MG TABLET PO SCH (09:07)
[2021-07-29] MEDS: CHOLECALCIFEROL 1,000 UNIT TABLET (VIT D3) PO SCH (09:07)
[2021-07-29] MEDS: ASPIRIN EC 81 MG TABLET.DR PO SCH (09:07)
[2021-07-29] MEDS: PANTOPRAZOLE 40 MG TABLET.DR PO SCH (09:07)
--- NOTE | 2021-07-29 09:09 | NUR ---
RN NOTE Patient complained of BLE pain, requested for Tylenol, gave PRN Tylenol. Will continue to monitor.
--- NOTE | 2021-07-29 11:00 | NUR ---
RN NOTE Drained urine and changed purewick system with 200 cc output.
[2021-07-29] MEDS: ENOXAPARIN SODIUM 40 MG/0.4 ML DISP.SYRIN SQ SCH (12:36)
[2021-07-29] MEDS: CEFTRIAXONE 2 G in IV D5W 100 ML IV SCH (12:38)
[2021-07-29] MEDS: VANCOMYCIN 0.75 GM in IV D5W 250 ML IV SCH (13:37)
--- NOTE | 2021-07-29 13:55 | NUR ---
SS Note: SW received consult regarding pt.'s request. Pt. expressed that she wants counseling outpatient resources. SW provided and educated pt. on resources. Resource Provided: Counseling--Outpatient [facility] [address], [address] [place], [place] [address] (Specializes in in-depth psychotherapy for emotional distress: anxiety, depression, interpersonal conflicts, life transitions, childhood abuse) [facility] [address] [place] [address] (Assist with solving problem marital difficulties, separation & divorce, aging parents, & grief, chronic & terminal illness) [facility] [address] [place] [address] (Deal with loss & grief, anxiety, marital difficulties) Homebound/Mental Health Services [address] [facility] [address] [place] [address] (Provide in-home mental services to people who are incapable of leaving their homes) Organization for Needs of the Elderly Senior Service/Resource Center [address] [place] [address] [facility] [address] [place] [address] PSYCHIATRIC OUTPATIENT SERVICES [facility] Partial Hospitalization and Intensive Outpatient Program (Managed Care and [place] Only)[address] [facility] [phone] [facility] Partial Hospitalization and Outpatient [id number] [facility]. [address] [place], [place] [phone] [facility] [id number] [facility] [address] [place], [place] [phone] [facility] Partial Hospitalization and Outpatient [id number] Emelita [place], [phone] Substance Abuse resources provided included: [facility] Substance Abuse Self-Helpline (SASH) ; CRI -HELP [address] [facility]. [place] [phone] ; [facility] [place] [address] [facility] [address] ; [facility] Rehabilitation Program [address] [facility] [place] [address] ; [facility] [address] [facility] [phone] ; [facility] [address] [place] [facility] [address] ; [facility] [address] [facility] [phone] ; [facility] Substance Abuse Helpline(SAS)[facility] ; [facility] ; [facility] [place]; [facility] [place]; [facility] [place]; I-ADARP Inter Agency Drug Abuse Recovery [place]; [facility] [place]; [facility] [place]; [facility] [place]; [facility] [place]; Alcoholics Anonymous -SFV; Ge-Zzqn-Dxnbcar ; Marijuana Anonymous -SFV; Narcotics Anonymous www.na.org;
[2021-07-29 16:05] VITALS: BP 122/60
--- NOTE | 2021-07-29 19:17 | NUR ---
MS RN CLOSING NOTE Patient in bed, resting comfortably. A/O x 4, able to make needs known. Stable on room air, breathing evenly and unlabored. No SOB or s/s of distress noted. IV access on RAC #20G, intact and patent. Purewick system in place draining to a yellow colored urine, drained 1200 cc. Wound care done, as ordered. All needs attended to. Due meds given. Safety precautions maintained: bed in low, locked position; siderails up x 2; call light within reach. Will endorse to transit operations supervisor nurse for JONI.
--- NOTE | 2021-07-29 19:38 | NUR ---
MS RN OPENING NOTE RECEIVED PT IN BED AWAKE. A/O X4. PT STABLE ON ROOM AIR. NO SOB OR S/S OF RESPIRATORY DISTRESS. IV ACCESS RAC 20 GAUGE SL, INTACT AND PATENT. PURWICK SYSTEM IN PLACE DRAINING CLEAR YELLOW URINE. DRESSING C/D/I. SAFETY PRECAUTIONS IN PLACE. BED IN LOWEST LOCKED POSITION, HOB ELEVATED, SIDE RAILS UP X2, AND CALL LIGHT AND TABLE WITHIN REACH. WILL ENDORSE TO ONCOMING NURSE FOR JONI.
[2021-07-29 19:57] VITALS: BP 113/61
[2021-07-30] MEDS: HYDROCODONE/APAP 5/325MG TABLET PO PRN (00:23)
[2021-07-30] MEDS: VANCOMYCIN 0.75 GM in IV D5W 250 ML IV SCH ×2 (01:59→14:11)
--- NOTE | 2021-07-30 06:55 | NUR ---
MS RN CLOSING NOTE PT IN BED AWAKE. A/O X4. PT STABLE ON ROOM AIR. NO SOB OR S/S OF RESPIRATORY DISTRESS. IV ACCESS RAC 20 GAUGE SL, INTACT AND PATENT. PURWICK SYSTEM IN PLACE DRAINING CLEAR YELLOW URINE. DRESSING C/D/I. SAFETY PRECAUTIONS IN PLACE. BED IN LOWEST LOCKED POSITION, HOB ELEVATED, SIDE RAILS UP X2, AND CALL LIGHT AND TABLE WITHIN REACH. WILL ENDORSE TO ONCOMING NURSE FOR JONI.
[2021-07-30 06:59] LABS: CALCIUM, SERUM 8.5 mg/dL (8.5-10.1); CREATININE 0.9 mg/dL (0.6-1.3); POTASSIUM 3.7 mmol/L (3.5-5.1)
[2021-07-30] MEDS: ACETAMINOPHEN 325 MG TABLET PO PRN (07:04)
--- NOTE | 2021-07-30 07:36 | NUR ---
RN OPENING NOTES Patient seen comfortably lying in bed, no apparent distress noted, respirations even and unlabored, no SOB, denies any pain or discomfort at this time, no grimacing. Call light left within reach, safety precautions in place, brakes locked, side rails up X 2, will monitor closely for any changes.
[2021-07-30 08:00] VITALS: BP 120/58
[2021-07-30] MEDS: ASCORBIC ACID 500 MG TABLET PO SCH (08:37)
[2021-07-30] MEDS: SENNOSIDES 8.6 MG TABLET PO SCH (08:37)
[2021-07-30] MEDS: FUROSEMIDE 40 MG/4 ML VIAL IV SCH ×2 (08:37→16:01)
[2021-07-30] MEDS: CHOLECALCIFEROL 1,000 UNIT TABLET (VIT D3) PO SCH (08:37)
[2021-07-30] MEDS: ASPIRIN EC 81 MG TABLET.DR PO SCH (08:37)
[2021-07-30] MEDS: PANTOPRAZOLE 40 MG TABLET.DR PO SCH (08:41)
[2021-07-30] MEDS: CLOTRIMAZOLE 1% 15 GM TUBE TP SCH ×2 (08:53→16:09)
[2021-07-30] MEDS: MUPIROCIN OINT 2% 22 GM TUBE TP SCH (08:53)
[2021-07-30] MEDS ORDERED: IOHEXOL-350 100 ML VIAL IV ONE ×3 (09:10→14:54)
[2021-07-30] MEDS ORDERED: IV NS 0.9% 250 ML IV ONE ×3 (09:10→14:54)
[2021-07-30] MEDS ORDERED: CT SWABBABLE VALVE TRANS SET 1 EA INFUS.SET MC ONE (09:11)
--- NOTE | 2021-07-30 09:52 | NUR ---
pt refused, wants exam done 07/31 rn at bedside will report to ordering pmd
[2021-07-30] MEDS: CEFTRIAXONE 2 G in IV D5W 100 ML IV SCH (12:02)
[2021-07-30] MEDS: ENOXAPARIN SODIUM 40 MG/0.4 ML DISP.SYRIN SQ SCH (12:05)
[2021-07-30] MEDS ORDERED: CEPH500T PO (12:09)
[2021-07-30] MEDS ORDERED: KETOROLAC TROMETHAMINE 10 MG TABLET PO PRN (13:00)
[2021-07-30 16:00] VITALS: BP 109/67
--- NOTE | 2021-07-30 18:36 | NUR ---
RN CLOSING NOTES Patient lying in bed, no SOB, respirations even and unlabored, no apparent distress noted, no dizziness, no palpitations, no chest pain, no nausea, no vomiting. Pain medication given as needed per MD order when non pharmacological measures ineffective, noted with help. All due medications given per MD order, tolerating well, wound care rendered per MD order. All needs attended, kept clean and dry, call light left within reach, safety precautions in place, frequent visual check rendered, brakes locked, side rails up X 2, will endorse to next shift for continuity of care.
[2021-07-30 20:00] VITALS: BP 126/54
--- NOTE | 2021-07-30 20:09 | NUR ---
MS RN OPENING NOTES: RECEIVED PATIENT AWAKE IN BED, BED IN LOW POSITION, CALL LIGHTS WITHIN REACH, NO COMPLAIN OF PAIN AND DISCOMFORT AT THIS TIME, PATIENT IS A/OX4 ABLE TO EXPRESS NEEDS, ON ROOM AIR SATURATING WELL, WITH IV LINE AT LAC#20 SL, PATIENT KEPT CLEAN AND DRY ALL NEEDS MET, WILL CONTINUE TO MONITOR.
[2021-07-31] MEDS: VANCOMYCIN 0.75 GM in IV D5W 250 ML IV SCH (02:04)
[2021-07-31] MEDS: ACETAMINOPHEN 325 MG TABLET PO PRN (02:47)
--- NOTE | 2021-07-31 06:20 | NUR ---
MS RN CLOSING NOTES: PATIENT SLEEP IN BED COMFORTABLY, AROUSABLE TO VERBAL STIMULI, BED IN LOW POSITION, CALL LIGHTS WITHIN REACH, NO COMPLAIN OF PAIN AND DISCOMFORT AT THIS TIME, PATIENT IS ON ROOM AIR SATURATING WELL, WITH IV LINE AT LAC#20SL PATIENT KEPT CLEAN AND DRY ALL NEEDS MET ENDORSE TO INCOMING SHIFT.
[2021-07-31 07:04] LABS: CALCIUM, SERUM 8.9 mg/dL (8.5-10.1); CREATININE 1.1 mg/dL (0.6-1.3); POTASSIUM 3.7 mmol/L (3.5-5.1)
--- NOTE | 2021-07-31 07:45 | NUR ---
MS RN OPENING NOTES PATIENT IN BED, AWAKE, A/O X4. BREATHING EVEN AND UNLABORED ON RA. NO PAIN VERBALIZED AT THIS TIME. L AC #20-SL INTACT AND PATENT. EXTERNAL URINARY VACUUM IN PLACE WITH CLEAR YELLOW URINE OUTPUT. SAFETY MEASURES IN PLACE: BED IN LOWEST POSITION, WHEELS LOCKED, SIDE RAILS UP X2, CALL LIGHT WITHIN REACH. WILL CONTINUE TO MONITOR PATIENT.
[2021-07-31 08:00] VITALS: BP 109/51
[2021-07-31] MEDS: SENNOSIDES 8.6 MG TABLET PO SCH (08:49)
[2021-07-31] MEDS: PANTOPRAZOLE 40 MG TABLET.DR PO SCH (08:49)
[2021-07-31] MEDS: ASCORBIC ACID 500 MG TABLET PO SCH (08:49)
[2021-07-31] MEDS: ASPIRIN EC 81 MG TABLET.DR PO SCH (08:50)
[2021-07-31] MEDS: CHOLECALCIFEROL 1,000 UNIT TABLET (VIT D3) PO SCH (08:50)
[2021-07-31] MEDS: FUROSEMIDE 40 MG/4 ML VIAL IV SCH (08:50)
[2021-07-31] MEDS: CLOTRIMAZOLE 1% 15 GM TUBE TP SCH (09:31)
[2021-07-31] MEDS: MUPIROCIN OINT 2% 22 GM TUBE TP SCH (09:31)
[2021-07-31] MEDS: ENOXAPARIN SODIUM 40 MG/0.4 ML DISP.SYRIN SQ SCH (12:30)
--- NOTE | 2021-07-31 14:15 | NUR ---
DRINK WAITER NOTES PATIENT MEDICALLY STABLE FOR DISCHARGE. DISCHARGE INSTRUCTIONS GIVEN TO PATIENT. PATIENT VERBALIZED UNDERSTANDING OF DISCHARGE INSTRUCTIONS. REFUSED TO HAVE PHOTOS TAKEN OF HER WOUNDS. ALL BELONGING ACCOUNTED FOR BUT REFUSED TO SIGN BELONGINGS SHEET. CASE MANAGING REFERRED PATIENT TO SNF BUT PATIENT REFUSED. PATIENT LEFT HOSPITAL IN PRIVATE CAR ACCOMPANIED BY SELF.
== END 2021-07-31 14:15 | disposition home or self-care (01) | DRG 602 ==
LOC: ER 08:41 → UNDOADMIN 09:39 → MEDSG1 09:39 → MED 11:43
PROVIDERS: ATTEND Nurse Practitioner Acute Care
PROC: 05HC33Z Insertion of Infusion Device into Left Basilic Vein, Percutaneous Approach (ICD-10-PCS; principal; 2021-07-28)
DX: L03.115 Cellulitis of right lower limb (principal); E43 Unspecified severe protein-calorie malnutrition; D68.59 Other primary thrombophilia; L97.429 Non-pressure chronic ulcer of left heel and midfoot with unspecified severity; L03.116 Cellulitis of left lower limb; Z20.822 Contact with and (suspected) exposure to COVID-19; E83.42 Hypomagnesemia; E66.9 Obesity, unspecified; E88.09 Other disorders of plasma-protein metabolism, not elsewhere classified; F41.9 Anxiety disorder, unspecified; I10 Essential (primary) hypertension; I48.0 Paroxysmal atrial fibrillation; Z92.21 Personal history of antineoplastic chemotherapy; Z85.42 Personal history of malignant neoplasm of other parts of uterus; Z59.00 Homelessness unspecified; Z68.38 Body mass index [BMI] 38.0-38.9, adult; I87.323 Chronic venous hypertension (idiopathic) with inflammation of bilateral lower extremity; I89.0 Lymphedema, not elsewhere classified; G62.9 Polyneuropathy, unspecified; I73.9 Peripheral vascular disease, unspecified; W18.30XA Fall on same level, unspecified, initial encounter; Y93.9 Activity, unspecified; Y92.9 Unspecified place or not applicable; Z90.710 Acquired absence of both cervix and uterus; S80.812A Abrasion, left lower leg, initial encounter; X58.XXXA Exposure to other specified factors, initial encounter
CPT/HCPCS: 36410; 36415; 73610-TC; 73630-TC; 80048-TC; 80061-TC; 80076-TC; 80202-TC; 81001; 83735-TC; 84100-TC; 84443-TC; 85025-TC; 87081-TC; 93970-TC; 97112-TC; 97530-TC; A6253; A6403; C9803; G0378; G0480; J0696; J1650; J1940; J3370; J7030; J7050; J7060; Q9967

== ENCOUNTER 2021-08-03 14:31 | Inpatient (IN) | payer MEDICARE ==
[~2021-08-03] VITALS: Ht 170.2 cm; Wt 99.8 kg
[~2021-08-03 14:31] MED LIST changes: +ASCO-340 PO; +CEPH500T PO; +FURO-144 PO; +LACT1CAP71 PO; -MAGN200T9 PO; +SENN-261 PO; -SULF1TAB48 PO
--- NOTE | 2021-08-03 15:00 | NUR ---
Received pt from [facility] c/o genralized rakeshallsandra for 5 days pt d/c home on 07/31/21 from [facility] EKG DONE AT BED side
[2021-08-03 15:46] LABS: BASOPHILS # (AUTO) 0.1 K/uL (0.0-0.2); BASOPHILS % (AUTO) 0.6 % (0.0-2.0); HEMATOCRIT 39 % (33-45); HEMOGLOBIN 12.5 g/dL (11.5-14.8); LYMPHOCYTES # (AUTO) 0.7 K/uL (0.8-4.8); LYMPHOCYTES % (AUTO) 7.3 % (20.0-44.0); MEAN CORPUSCULAR HGB CONC 33 g/dl (31.0-36.0); MEAN CORPUSCULAR VOLUME 91 fL (82-100); MONOCYTES # (AUTO) 1.1 K/uL (0.1-1.30); MONOCYTES % (AUTO) 12.2 % (2.0-12.0); NEUTROPHILS # (AUTO) 7.2 K/uL (1.8-8.9); NEUTROPHILS % (AUTO) 77.9 % (43.0-81.0); PLATELET COUNT (AUTO) 270 K/uL (150-450); RED BLOOD CELL COUNT(AUTO) 4.21 MIL/uL (4.0-5.2); WHITE BLOOD COUNT (AUTO) 9.2 K/uL (4.3-11.0)
--- NOTE | 2021-08-03 16:12 | NUR ---
COVID SWAB DONE AND SENT TO LAB
--- NOTE | 2021-08-03 16:30 | NUR ---
redness and swallen on both lower extramity and open skin on lt leg open plaster
[2021-08-03 16:32] LABS: CALCIUM, SERUM 9.3 mg/dL (8.5-10.1); CARBON DIOXIDE 35 mmol/L (21-32); CHLORIDE 99 mmol/L (98-107); CREATININE 0.9 mg/dL (0.6-1.3); GLUCOSE 121 mg/dL (74-106); POTASSIUM 4.1 mmol/L (3.5-5.1); SODIUM SERUM 137 mmol/L (136-145); UREA NITROGEN, BLOOD 27 mg/dL (7-18)
[2021-08-03 16:40] LABS: ALANINE AMINOTRANSFERASE 19 U/L (12-78); ALBUMIN 2.8 g/dL (3.4-5.0); ALKALINE PHOSPHATASE 75 U/L (46-116); ASPARTATE AMINOTRANSFERASE 14 U/L (15-37); BILIRUBIN,DIRECT 0.1 mg/dL (0.0-0.2); BILIRUBIN,TOTAL 0.4 mg/dL (0.2-1.0); TOTAL PROTEIN, SERUM 7.9 g/dL (6.4-8.2)
[2021-08-03 16:42] LABS: ALCOHOL, BLOOD 0 mg/dL (0-0)
[2021-08-03 16:49] LABS: ACETAMINOPHEN < 10 ug/ml (10-30)
[2021-08-03] MEDS ORDERED: HALOPERIDOL LACTATE INJ 5 MG/ML VIAL IM ONE (17:00)
[2021-08-03] MEDS ORDERED: diphenhydrAMINE HCL 50 MG/ML VIAL IM ONE (17:00)
[2021-08-03] MEDS ORDERED: LORAZEPAM INJ 2 MG/ML VIAL IM ONE (17:00)
--- NOTE | 2021-08-03 17:06 | NUR ---
SLEEPYING ON and off
[2021-08-03] MEDS ORDERED: HALOPERIDOL LACTATE INJ 5 MG/ML VIAL ONE (17:20)
[2021-08-03] MEDS ORDERED: diphenhydrAMINE HCL 50 MG/ML VIAL ONE (17:20)
[2021-08-03] MEDS ORDERED: LORAZEPAM INJ 2 MG/ML VIAL ONE (17:21)
--- NOTE | 2021-08-03 17:22 | NUR ---
PAGED CAR FERRIER
--- NOTE | 2021-08-03 18:08 | NUR ---
resting at bed side no sob wating for bed on psych unite
--- NOTE | 2021-08-03 18:12 | NUR ---
ROOM 211-2 BUT STILL AWAITING SKIN LIFTER BACON TO PUT PT ON A HOLD
--- NOTE | 2021-08-03 18:41 | NUR ---
CITY DESIGNER AT BED SIDE
--- NOTE | 2021-08-03 19:30 | NUR ---
hand off to [facility] pt of hold for Gravely disable
--- NOTE | 2021-08-03 19:58 | NUR ---
RN GIVEN TO ABDELRAHMAN QUEZADA
[2021-08-03] MEDS ORDERED: BLOOD SUGAR DIAGNOSTIC 1 EACH STRIP IN ONE (20:30)
[2021-08-03] MEDS ORDERED: MAGNESIUM HYDROXIDE 30 ML UDC PO PRN (20:30)
[2021-08-03] MEDS ORDERED: TEMAZEPAM 7.5 MG CAPSULE PO PRN (20:30)
[2021-08-03] MEDS ORDERED: MAG HYDROX/AL HYDROX/SIMETH 30 ML UDC PO PRN (20:30)
[2021-08-03 21:11] VITALS: BP 116/65
--- NOTE | 2021-08-03 23:59 | NUR ---
CERAMIC SPRAYER GPS NOTE. RECEIVED PATIENT FROM HOME. PATIENT ARRIVAL TIME 2014 VIA STRETCHER BY 1 ER STAFF. PATIENT ADMITTED ON A 5150 HOLD FOR GRAVELY DISABLED. PER HOLD, PATIENT WAS FOUND IN HER CAR UNABLE TO CARE FOR HER BASIC NEEDS AFTER BEING DISCHARGED FROM THIS HOSPITAL 3 DAYS AGO. PATIENT WAS ALSO FOUND WITH CELLULITIS IN HER LOWER EXTREMITIES, WHICH HAS NOT RESOLVED SINCE HER DISCHARGE. ON-CALL MD WAS NOTIFIED AND PATIENT WAS GIVEN A WOUND CONSULT AND Z-GUARD TREATMENT. IT WAS ALSO REVEALED THAT PATIENT STATED SHE HASN'T HAD A COVID VACCINE AND REFUSED TO RECEIVED ONE. RESPIRATIONS ARE EVEN AND UNLABORED WITH NO SOB NOTED PATIENT SEEMS TO BE ALERT AND ORIENTED X3. PATIENT CURRENTLY DENIES ANY SUICIDAL, HOMICIDAL IDEATION AT THIS TIME. PATIENT ADVISED OF HOLD AND PATIENT'S RIGHTS HAND BOOK WAS GIVEN. PATIENT BELONGINGS CHECKED FOR CONTRABAND AND STORED IN LOCKER. SKIN ASSESSMENT COMPLETED, REVEALING CELLULITIS IN THE LOWER EXTREMITIES ALONG WITH REDNESS ON BUTTOCKS AREA AND BRUISING ON RIGHT UPPER ARM. PATIENT IS UNABLE TO WALK, BUT STATED SHE CAN TRY WITH A WALKER. PT CONSULT WAS ORDERED FOR FURTHER EVALUATION. PATIENT REFUSED TO SIGN ANY PAPERWORK, BUT AGREED TO PHOTO OF HER FACE AND HER SKIN. AFTERWARDS, PATIENT WAS ORIENTED TO UNIT AND SLEPT THRU MOST OF THE NIGHT. EDUCATED ON THE USE OF OF THE CALL SOLIS. PATIENT SIDE RAILS UP X2 FOR SAFETY. BED LOCKED, LOW, AND WILL CONTINUE TO MONITOR Q15 MINUTES FOR SAFETY.
[2021-08-04] MEDS ORDERED: Z GUARD REMEDY 4 OZ OINT TP PRN (02:30)
[2021-08-04 07:04] LABS: BASOPHILS % (AUTO) 0.5 % (0.0-2.0); EOSINOPHILS % (AUTO) 2.4 % (0.0-6.0); HEMATOCRIT 34 % (33-45); HEMOGLOBIN 11.4 g/dL (11.5-14.8); LYMPHOCYTES # (AUTO) 1.1 K/uL (0.8-4.8); LYMPHOCYTES % (AUTO) 12.8 % (20.0-44.0); MEAN CORPUSCULAR HGB CONC 33 g/dl (31.0-36.0); MEAN CORPUSCULAR VOLUME 92 fL (82-100); MONOCYTES # (AUTO) 1.1 K/uL (0.1-1.30); MONOCYTES % (AUTO) 13.1 % (2.0-12.0); NEUTROPHILS # (AUTO) 5.8 K/uL (1.8-8.9); NEUTROPHILS % (AUTO) 71.2 % (43.0-81.0); PLATELET COUNT (AUTO) 251 K/uL (150-450); RED BLOOD CELL COUNT(AUTO) 3.74 MIL/uL (4.0-5.2); WHITE BLOOD COUNT (AUTO) 8.2 K/uL (4.3-11.0)
[2021-08-04 07:37] LABS: ALBUMIN 2.4 g/dL (3.4-5.0); BILIRUBIN,TOTAL 0.3 mg/dL (0.2-1.0); CREATININE 0.9 mg/dL (0.6-1.3); POTASSIUM 3.8 mmol/L (3.5-5.1); TOTAL PROTEIN, SERUM 6.8 g/dL (6.4-8.2)
[2021-08-04 08:00] VITALS: BP 128/76
--- NOTE | 2021-08-04 08:11 | NUR ---
WOUND CARE CONSULT: PT PRESENTS WITH RASH AND REDNESS TO PERINEUM AND BUTTOCKS WELL REDNESS WITH WEEPING AREA TO LEFT LATERAL LOWER LEG, PRESENT ON ADMISSION. DPM CONSULT CALLED TO DR DONAHUE. RECOMMENDATIONS MADE FOR SKIN PROTECTION AND DISCUSSED WITH NURSING STAFF. MD IN AGREEMENT WITH PLAN OF CARE.
[2021-08-04] MEDS: LORAZEPAM 0.5 MG TABLET PO PRN (08:44)
[2021-08-04] MEDS: FUROSEMIDE 40 MG TABLET PO SCH (08:44)
[2021-08-04] MEDS: CHOLECALCIFEROL 1,000 UNIT TABLET (VIT D3) PO SCH (08:44)
[2021-08-04] MEDS: SENNOSIDES 8.6 MG TABLET PO SCH (08:44)
[2021-08-04] MEDS: ASPIRIN EC 81 MG TABLET.DR PO SCH (08:45)
[2021-08-04] MEDS: CEPHALEXIN MONOHYDRATE 500 MG CAPSULE PO SCH ×2 (08:45→20:48)
[2021-08-04] MEDS: ASCORBIC ACID 500 MG TABLET PO SCH (08:45)
[2021-08-04] MEDS: Z GUARD REMEDY 4 OZ OINT TP SCH (08:47)
[2021-08-04] MEDS ORDERED: CLOTRIMAZOLE 1% 15 GM TUBE TP SCH (09:00)
--- NOTE | 2021-08-04 09:11 | NUR ---
RN-CO: ATIVAN 0.5 MG PO GIVEN FOR AGITATION.
--- NOTE | 2021-08-04 09:36 | NUR ---
SYDNEE Initial Discharge Plan: Patient currently resides at [address] [place] [address]; ([phone]). Pt wants to return back home, however, pt will possibly need a nursing facility. SYDNEE will discuss with the treatment team and doctor for appropriate discharge plan.
--- NOTE | 2021-08-04 09:36 | NUR ---
SW Admit Source: Patient was admitted at [facility] for GD. Patient has been sleeping in her car and unable to go upstairs to her apartment. Patient currently resides at [address] [place] [address]; ([phone]). Pt wants to return back home, however, pt will possibly need a nursing facility.
[2021-08-04] MEDS: ACETAMINOPHEN 325 MG TABLET PO PRN ×2 (10:52→19:38)
--- NOTE | 2021-08-04 10:52 | NUR ---
RN-CO: PT WAS SEEN AND EXAMINED BY DR STEWART (INTERNAL CONTROLS SPECIALIST).
[2021-08-04] MEDS ORDERED: LIDOCAINE 5% OINT 35.44 GM TUBE TP PRN (11:00)
[2021-08-04 16:00] VITALS: BP 119/63
[2021-08-04] MEDS: SERTRALINE HCL 25 MG TABLET PO SCH (19:24)
[2021-08-04 20:00] VITALS: BP 114/53
[2021-08-04] MEDS: CLOTRIMAZOLE 1% 15 GM TUBE TP SCH (20:49)
[2021-08-05 08:00] VITALS: BP 116/74
[2021-08-05] MEDS: SENNOSIDES 8.6 MG TABLET PO SCH (09:00)
[2021-08-05] MEDS: CLOTRIMAZOLE 1% 15 GM TUBE TP SCH ×3 (09:00→21:58)
[2021-08-05] MEDS: CEPHALEXIN MONOHYDRATE 500 MG CAPSULE PO SCH ×2 (10:21→20:59)
[2021-08-05] MEDS: FUROSEMIDE 40 MG TABLET PO SCH (10:21)
[2021-08-05] MEDS: CHOLECALCIFEROL 1,000 UNIT TABLET (VIT D3) PO SCH (10:21)
[2021-08-05] MEDS: ASPIRIN EC 81 MG TABLET.DR PO SCH (10:21)
[2021-08-05] MEDS: ASCORBIC ACID 500 MG TABLET PO SCH (10:21)
[2021-08-05] MEDS: LORAZEPAM 0.5 MG TABLET PO PRN (10:25)
--- NOTE | 2021-08-05 10:40 | NUR ---
OFFERED ATIVAN,PT. YELLING OUT AND CUFF MATCHER LIGHT CONTINUALLY.REFUSED ATIVAN.
[2021-08-05] MEDS: SILVER SULFADIAZINE CREAM 25 GM TUBE TP SCH (10:48)
[2021-08-05] MEDS: Z GUARD REMEDY 4 OZ OINT TP SCH (10:56)
--- NOTE | 2021-08-05 13:49 | NUR ---
SNF Referral: SYDNEE sent clinicals to Kylee richard from [facility] ([phone]) for placement option. SW sent H & P, progress notes, and medication list.
--- NOTE | 2021-08-05 14:08 | NUR ---
APS CONTACT: SW RECEIVED A CALL FROM [employer] ARE[employer] SUPERVISOR ([phone]) WHO STATED THAT PT HAS A CASE OPEN FOR SELF-NEGLECT. SHE STATED THAT SHE HAS DONE A HOME VISIT AT HER HOUSE AND THE APARTMENT IS [facility]. SHE REPORTED THAT SHE INTERVIEWED THE THERAPY ASSISTANT AND THERAPY ASSISTANT STATED PT DOES NOT LIVE IN THAT APARTMENT. SHE REPORTED THAT THE DOOR IS OPEN WITH NO FURNITURE IN THE HOUSE. SHE EXPRESSED THAT PT WAS RESIDING AT [facility]. SHE STATED THAT PT WOULD NEED A NURSING FACILITY. CARINA WILL INTERVIEW PT THROUGH VIA TELEHEALTH ON 08/05/2021.
[2021-08-05 16:00] VITALS: BP 121/64
[2021-08-05] MEDS: SERTRALINE HCL 25 MG TABLET PO SCH ×2 (17:00→17:51)
--- NOTE | 2021-08-05 18:56 | NUR ---
needy and calling for nurse and photo cartographer constantly.
[2021-08-05] MEDS: ACETAMINOPHEN 325 MG TABLET PO PRN (21:28)
[2021-08-06 07:51] LABS: CALCIUM, SERUM 9.4 mg/dL (8.5-10.1); CREATININE 0.7 mg/dL (0.6-1.3); POTASSIUM 4.3 mmol/L (3.5-5.1)
[2021-08-06 08:00] VITALS: BP 131/86
[2021-08-06] MEDS: SENNOSIDES 8.6 MG TABLET PO SCH (09:00)
[2021-08-06] MEDS: ASPIRIN EC 81 MG TABLET.DR PO SCH (10:23)
[2021-08-06] MEDS: CHOLECALCIFEROL 1,000 UNIT TABLET (VIT D3) PO SCH (10:24)
[2021-08-06] MEDS: ASCORBIC ACID 500 MG TABLET PO SCH (10:25)
[2021-08-06] MEDS: FUROSEMIDE 40 MG TABLET PO SCH (10:26)
[2021-08-06] MEDS: CEPHALEXIN MONOHYDRATE 500 MG CAPSULE PO SCH ×2 (10:26→20:39)
[2021-08-06] MEDS: CLOTRIMAZOLE 1% 15 GM TUBE TP SCH ×3 (10:27→20:40)
[2021-08-06] MEDS: Z GUARD REMEDY 4 OZ OINT TP SCH (10:28)
[2021-08-06] MEDS: SILVER SULFADIAZINE CREAM 25 GM TUBE TP SCH (10:28)
[2021-08-06] MEDS: DIVALPROEX SODIUM 125 MG CAP.SPRINK PO SCH ×3 (14:00→17:00)
--- NOTE | 2021-08-06 14:22 | NUR ---
rn notes patient refused medication 1300. patient noted / she will control her mood.
[2021-08-06 16:00] VITALS: BP 133/80
--- NOTE | 2021-08-06 17:00 | NUR ---
RN NOTES PATIENT REFUSED DUE MEDICATION AT THIS TIME, DRESSING CHANGED ON LEFT LOWER LEG. PATIENT MORE CALM AT THIS TIME.
[2021-08-06 20:00] VITALS: BP 127/61
[2021-08-06] MEDS: ACETAMINOPHEN 325 MG TABLET PO PRN (20:39)
[2021-08-07 08:00] VITALS: BP 128/78
[2021-08-07] MEDS: CHOLECALCIFEROL 1,000 UNIT TABLET (VIT D3) PO SCH (08:04)
[2021-08-07] MEDS: CEPHALEXIN MONOHYDRATE 500 MG CAPSULE PO SCH (08:04)
[2021-08-07] MEDS: ASPIRIN EC 81 MG TABLET.DR PO SCH (08:05)
[2021-08-07] MEDS: DIVALPROEX SODIUM 125 MG CAP.SPRINK PO SCH (08:05)
[2021-08-07] MEDS: SENNOSIDES 8.6 MG TABLET PO SCH (08:05)
[2021-08-07] MEDS: ASCORBIC ACID 500 MG TABLET PO SCH (08:05)
[2021-08-07] MEDS: FUROSEMIDE 40 MG TABLET PO SCH (08:08)
--- NOTE | 2021-08-07 08:55 | NUR ---
SW Discharge Note: Patient will be discharged to [facility] [address], [place] [address] ([phone]). Please arrange ambulance transportation at 4PM. Spoke with Brie, Admin Coordinator at the facility who states they are ready to accept the patient today. Patient does not have any supportive contact. Patient is alert and oriented x3, is unable to plan for self-care at this time, however, is willing to accept care at [facility]. Patient denies any suicidal or homicidal ideation. Patient will continue to follow-up with her (Psychiatrist ) Dr. Park [address], [place] [address]; ([phone]) and (Expediter) Dr. Henderson [address], [place] [address]; ([phone]). Patient presents with euthymic mood and congruent affect.
--- NOTE | 2021-08-07 10:13 | NUR ---
dr. Park gave an order to D/C hold and D/C to [facility]. Pt. reconciled meds to continue and to follow up with the psych and medical doctors.
[2021-08-07] MEDS: CLOTRIMAZOLE 1% 15 GM TUBE TP SCH ×2 (10:57→11:00)
[2021-08-07] MEDS: SILVER SULFADIAZINE CREAM 25 GM TUBE TP SCH (10:57)
[2021-08-07] MEDS: Z GUARD REMEDY 4 OZ OINT TP SCH (10:58)
--- NOTE | 2021-08-07 12:22 | NUR ---
Spoke to Dr. Marie and made aware of the discharge and reconciled the meds to continue in the facility.
--- NOTE | 2021-08-07 15:45 | NUR ---
GPS/RN PT DISCHARGE TO [facility]IA AMBULANCE. REPORT GIVEN TO SALOMÓN QUICK. VSS NO DISTRESS REPORTED. NO SI OR HI AT THE TIME OF DISCHARGE. PROPERTY FROM [facility], MEDICATIONS RETURNED. PT REFUSED TO SIGN PROPERTY LIST. MEDICATIONS, EXIT CARE INSTRUCTIONS AND D/C TEACHINGS GIVEN. PT REFUSED PICTURES ON DISCHARGE.
== END 2021-08-07 15:45 | DRG 885 ==
LOC: ER 14:35 → GPS 18:23
PROVIDERS: ADMIT Psychiatry & Neurology Psychosomatic Medicine; ATTEND Family Medicine
DX: F33.2 Major depressive disorder, recurrent severe without psychotic features (principal); F01.50 Vascular dementia, unspecified severity, without behavioral disturbance, psychotic disturbance, mood disturbance, and anxiety; E43 Unspecified severe protein-calorie malnutrition; L97.929 Non-pressure chronic ulcer of unspecified part of left lower leg with unspecified severity; F23 Brief psychotic disorder; F41.9 Anxiety disorder, unspecified; I10 Essential (primary) hypertension; Z85.42 Personal history of malignant neoplasm of other parts of uterus; Z88.3 Allergy status to other anti-infective agents; Z88.8 Allergy status to other drugs, medicaments and biological substances; Z79.899 Other long term (current) drug therapy; Z79.82 Long term (current) use of aspirin; Z73.6 Limitation of activities due to disability; I48.91 Unspecified atrial fibrillation; I87.8 Other specified disorders of veins; K74.60 Unspecified cirrhosis of liver; B35.1 Tinea unguium; Z90.710 Acquired absence of both cervix and uterus; E88.09 Other disorders of plasma-protein metabolism, not elsewhere classified; R79.89 Other specified abnormal findings of blood chemistry
CPT/HCPCS: 36415; 80048-TC; 80053-TC; 80061-TC; 80076-TC; 85025-TC; 87081-TC; 97116-TC; 97530-TC; A6403; C9803; G0480; J1200; J1630; J2060